=== PATIENT | female | born 1985 | race Caucasian/White ===

== ENCOUNTER 2016-12-29 12:25 | Emergency (ER) | payer SELFPAY ==
--- NOTE | 2016-12-29 12:39 | ER Document Report ---
ED Medical Screen (RME) - General Stated Complaint: HEADACHE,COUGH,CONGESTION,FEVER Mode of Arrival: Ambulatory Information source: Patient Notes: 31 y/o F presents to ED c/o cough and congestion. Reports subjective fever, associated mid chest pain and sob with coughing bouts. I have greeted and performed a rapid initial assessment of this patient. A comprehensive ED assessment and evaluation of the patient, analysis of test results and completion of the medical decision making process will be conducted by additional ED providers. TRAVEL OUTSIDE OF THE [place] IN LAST 30 DAYS: No - Related Data Allergies/Adverse Reactions: No Known Allergies Allergy (Verified 12/29/16 12:34) Past Medical History Endocrine Medical History: Reports: Hx Diabetes Mellitus Type 2 Past Surgical History: Reports: Hx Section, Hx Cholecystectomy - Immunizations Hx Diphtheria, Pertussis, Tetanus Vaccination: No Physical Exam - Vital signs Vitals: Temp Pulse Resp BP Pulse Ox 98.2 F 91 18 125/83 97 12/29/16 12:32 12/29/16 12:32 12/29/16 12:32 12/29/16 12:32 12/29/16 12:32 - General General appearance: Alert In distress: None - Respiratory Respiratory status: No respiratory distress Breath sounds: Normal - Cardiovascular Pulses: Normal: Radial Normal capillary refill: Yes Course - Vital Signs Vital signs: Temp Pulse Resp BP Pulse Ox 98.2 F 91 18 125/83 97 12/29/16 12:32 12/29/16 12:32 12/29/16 12:32 12/29/16 12:32 12/29/16 12:32
[2016-12-29 13:21] LABS: APPEARANCE,URINE SLIGHTLY-CLOUDY; BILIRUBIN,URINE NEGATIVE (NEGATIVE); GLUCOSE, URINE >=500 mg/dL (NEGATIVE); KETONES,URINE TRACE mg/dL (NEGATIVE); LEUKOCYTE ESTERASE,URINE NEGATIVE (NEGATIVE); NITRITE,URINE NEGATIVE (NEGATIVE); PROTEIN,URINE NEGATIVE (NEGATIVE); URINE SPECIFIC GRAVITY 1.039; UROBILINOGEN,URINE NEGATIVE mg/dL (<2.0)
[2016-12-29] MEDS ORDERED: ALBUTEROL SULFATE HFA (90 MCG/PUFF) 8 GM MDI (1 MDI/ER DISP) IH ONE (14:32)
--- NOTE | 2016-12-29 14:33 | ER Document Report ---
ED General - General Chief Complaint: Fever Stated Complaint: HEADACHE,COUGH,CONGESTION,FEVER Mode of Arrival: Ambulatory TRAVEL OUTSIDE OF THE [place] IN LAST 30 DAYS: No - HPI Patient complains to provider of: cough congestion fever headache Notes: Patient coming in for evaluation of cough fever congestion headache ongoing for last 2-3 days. Patient states she's tried Tylenol at home for her symptoms. No other [id number] medications. Patient does not smoke does not drink does not use any drugs. States she has had a flu shot this year. Patient denies any recent travel or sick contacts. Patient states she also is having some mild nausea. - Related Data Allergies/Adverse Reactions: No Known Allergies Allergy (Verified 12/29/16 12:34) Past Medical History - General Information source: Patient - Social History Smoking Status: Never Smoker Chew tobacco use (# tins/day): No Frequency of alcohol use: None Drug Abuse: None Family History: Reviewed & Not Pertinent Patient has suicidal ideation: No Patient has homicidal ideation: No Endocrine Medical History: Reports: Hx Diabetes Mellitus Type 2 Renal/ Medical History: Denies: Hx Peritoneal Dialysis Past Surgical History: Reports: Hx Section, Hx Cholecystectomy - Immunizations Hx Diphtheria, Pertussis, Tetanus Vaccination: No Review of Systems - Review of Systems Constitutional: Fever, Other - Feeling unwell cough congestion EENT: No symptoms reported Cardiovascular: No symptoms reported Respiratory: No symptoms reported Gastrointestinal: Nausea Genitourinary: No symptoms reported Female Genitourinary: No symptoms reported Musculoskeletal: No symptoms reported Skin: No symptoms reported Hematologic/Lymphatic: No symptoms reported Neurological/Psychological: No symptoms reported -: Yes All other systems reviewed and negative Physical Exam - Vital signs Vitals: Temp Pulse Resp BP Pulse Ox 98.2 F 91 18 125/83 97 12/29/16 12:32 12/29/16 12:32 12/29/16 12:32 12/29/16 12:32 12/29/16 12:32 Interpretation: Normal - General General appearance: Appears well, Alert - HEENT Head: Normocephalic, Atraumatic Eyes: Normal Pupils: PERRL - Respiratory Respiratory status: No respiratory distress Chest status: Nontender Breath sounds: Wheezing - Fine wheezing at bases Chest palpation: Normal - Cardiovascular Rhythm: Regular Heart sounds: Normal auscultation Murmur: No - Abdominal Inspection: Normal Distension: No distension Bowel sounds: Normal Tenderness: Nontender Organomegaly: No organomegaly - Back Back: Normal, Nontender - Extremities General upper extremity: Normal inspection, Nontender, Normal color, Normal ROM , Normal temperature General lower extremity: Normal inspection, Nontender, Normal color, Normal ROM , Normal temperature, Normal weight bearing. No: Cherie's sign - Neurological Neuro grossly intact: Yes Cognition: Normal Orientation: AAOx4 Brenda Coma Scale Eye Opening: Spontaneous Brenda Coma Scale Verbal: Oriented [place] Coma Scale Motor: Obeys Commands Brenda Coma Scale Total: 15 Speech: Normal Motor strength normal: LUE, RUE, LLE, RLE Sensory: Normal - Psychological Associated symptoms: Normal affect, Normal mood - Skin Skin Temperature: Warm Skin Moisture: Dry Skin Color: Normal Course - Re-evaluation Re-evalutation: 12/29/16 19:36 Patient more likely has viral bronchitis or viral syndrome. Will treat wheezing with a bronchodilator will give steroids were given nausea medication patient was encouraged to use Tylenol Motrin for other aches and pains will discharge home. - Vital Signs Vital signs: Temp Pulse Resp BP Pulse Ox 98.5 F 91 15 112/64 97 12/29/16 15:08 12/29/16 15:08 12/29/16 15:08 12/29/16 15:08 12/29/16 15:08 - Laboratory Laboratory results interpreted by me: 12/29/16 12:45 Urine Glucose (UA) >=500 H Urine Ketones TRACE H Discharge - Discharge Clinical Impression: Viral bronchitis Condition: Good Disposition: HOME, SELF-CARE Instructions: Fever ([facility]), Viral Syndrome ([facility]), Bronchitis ([facility]) Additional Instructions: Please use the inhaler that we gave you here in ER 2 puffs every 4 hours for shortness of breath. Return to the ER symptoms worsen. Prescriptions: Prednisone [Deltasone 20 mg Tablet] 3 tab PO DAILY 5 Days Promethazine HCl [Phenergan 25 mg Tablet] 1 tab PO Q6H PRN #30 tablet PRN Reason: Forms: Return to Work
[2016-12-29 15:09] VITALS: BP 112/64
--- NOTE | 2016-12-29 22:12 | EKG REPORT ---
SEVERITY:- ABNORMAL ECG - SINUS RHYTHM PROBABLE LEFT VENTRICULAR HYPERTROPHY : Confirmed by: Carolyn Scott 29-Dec-2016 22:12:34
== END 2016-12-29 15:05 | disposition home or self-care (01) ==
LOC: ER 12:25
DX: J40 Bronchitis, not specified as acute or chronic (principal); B97.89 Other viral agents as the cause of diseases classified elsewhere; R05 Cough; R50.9 Fever, unspecified; R51 Headache; R11.0 Nausea; E11.9 Type 2 diabetes mellitus without complications; R06.2 Wheezing
CPT/HCPCS: 93005; 99284; 81025; 81001; 87804; 71020; 93010; J3490

== ENCOUNTER 2017-05-30 16:40 | Emergency (ER) | payer MEDICAID ==
[2017-05-30] MEDS ORDERED: LIDOCAINE 1% INJ-PF (10 MG/ML) 30 ML SDV INJ ONE (16:56)
--- NOTE | 2017-05-30 17:06 | ER Document Report ---
HPI - HPI Patient complains to provider of: finger lac Onset: Just prior to arrival Onset/Duration: Sudden Quality of pain: Achy Pain Level: 2 Context: Patient states that she was cutting chicken, the knife slipped and she cut dorsal aspect of her left index finger. Patient's tetanus is currently up-to- date. Associated Symptoms: Other - finger lac Exacerbated by: Movement Relieved by: Denies Similar symptoms previously: No Recently seen / treated by doctor: No - ROS ROS below otherwise negative: Yes Systems Reviewed and Negative: Yes All other systems reviewed and negative - NEURO Neurology: DENIES: Weakness - CARDIOVASCULAR Cardiovascular: DENIES: Chest pain - GASTROINTESTINAL Gastrointestinal: DENIES: Nausea - REPRODUCTIVE LMP: jan 16 Reproductive: DENIES: : - DERM Skin Color: Normal Skin Problems: Laceration Past Medical History - General Information source: Patient - Social History Smoking Status: Never Smoker Frequency of alcohol use: None Drug Abuse: None Lives with: Family Family History: Reviewed & Not Pertinent Patient has suicidal ideation: No Patient has homicidal ideation: No Endocrine Medical History: Reports: Hx Diabetes Mellitus Type 2 Renal/ Medical History: Denies: Hx Peritoneal Dialysis Past Surgical History: Reports: Hx Section, Hx Cholecystectomy - Immunizations Hx Diphtheria, Pertussis, Tetanus Vaccination: Yes Vertical Provider Document - CONSTITUTIONAL Agree With Documented VS: Yes Exam Limitations: No Limitations General Appearance: WD/WN, No Apparent Distress - INFECTION CONTROL TRAVEL OUTSIDE OF THE [place] IN LAST 30 DAYS: No - HEENT HEENT: Atraumatic, Normocephalic - NECK Neck: Normal Inspection - RESPIRATORY Respiratory: No Respiratory Distress O2 Sat by Pulse Oximetry: 98 - CARDIOVASCULAR Pulses: Normal: Radial - MUSCULOSKELETAL/EXTREMETIES Musculoskeletal/Extremeties: MAEW Notes: Tenderness to laceration over dorsal aspect of right second finger over proximal phalanx. No tendon deficit - NEURO Level of Consciousness: Awake, Alert, Appropriate Motor/Sensory: No Motor Deficit - DERM Integumentary: Laceration - 1.5 cm lac dorsal aspect left 2nd finger Course - Vital Signs Vital signs: Temp Pulse Resp BP Pulse Ox 98.5 F 88 16 133/78 H 98 05/30/17 16:43 05/30/17 16:43 05/30/17 16:43 05/30/17 16:43 05/30/17 16:43 Procedures - Laceration/Wound Repair Left 2nd digit Wound length (cm): 1.5 Wound's Depth, Shape: Linear Anesthetic type: 1% Lidocaine Wound explored: Clean, No foreign body removed Wound Repaired With: Sutures Suture Size/Type: 5:0, Nylon Number of Sutures: 3 Layer Closure?: No Post-procedure wound care: Sterile dressing applied Post-procedure NV exam normal: Yes Complications: No Hands back picture: 1 - 1.5 cm lac Discharge - Discharge Clinical Impression: Finger laceration Qualifiers: Encounter type: initial encounter Finger: index finger Damage to nail status: without damage Foreign body presence: without foreign body Laterality: left Qualified Code(s): S61.211A - Laceration without foreign body of left index finger without damage to nail, initial encounter Condition: Stable Disposition: HOME, SELF-CARE Instructions: Laceration Care ([facility]), Prophylactic Antibiotic ([facility]) Additional Instructions: Return immediately for any new or worsening symptoms Followup with your primary care provider, call tomorrow to make a followup appointment Suture removal in 12 days Prescriptions: Cephalexin Monohydrate [Keflex 500 mg Capsule] 500 mg PO BID 5 Days Forms: Return to Work Referrals: [facility] [Provider Group] - Follow up as needed
[2017-05-30] MEDS ORDERED: CEPHALEXIN 500 MG CAPSULE PO ONE (17:08)
[2017-05-30 18:26] VITALS: BP 112/63
== END 2017-05-30 18:24 | disposition home or self-care (01) ==
LOC: ER 16:40
PROC: 0HQGXZZ Repair Left Hand Skin, External Approach (ICD-10-PCS; principal; 2017-05-30)
DX: S61.211A Laceration without foreign body of left index finger without damage to nail, initial encounter (principal); W26.0XXA Contact with knife, initial encounter; Y93.G9 Activity, other involving cooking and grilling; E11.9 Type 2 diabetes mellitus without complications
CPT/HCPCS: 12001; 99282; J3490

== ENCOUNTER 2017-06-25 14:49 | Outpatient (CLI) | payer MEDICAID ==
[2017-06-25 15:49] LABS: APPEARANCE,URINE SLIGHTLY-CLOUDY; BILIRUBIN,URINE NEGATIVE (NEGATIVE); GLUCOSE, URINE NEGATIVE (NEGATIVE); KETONES,URINE NEGATIVE (NEGATIVE); LEUKOCYTE ESTERASE,URINE NEGATIVE (NEGATIVE); NITRITE,URINE NEGATIVE (NEGATIVE); PROTEIN,URINE NEGATIVE (NEGATIVE); URINE SPECIFIC GRAVITY 1.021; UROBILINOGEN,URINE NEGATIVE mg/dL (<2.0)
[2017-06-25 15:58] LABS: URINE BARBITURATES SCREEN NEGATIVE; URINE METHADONE SCREEN NEGATIVE; URINE OPIATES LOW NEGATIVE; URINE PHENCYCLIDINE SCREEN NEGATIVE
[2017-06-25] MEDS ORDERED: ONDANSETRON 4 MG TAB.RAPDIS ONE (16:03)
[2017-06-25] MEDS ORDERED: ONDANSETRON 4 MG TAB.RAPDIS PO ONE (16:29)
== END 2017-06-25 17:30 | disposition home or self-care (01) ==
LOC: LC 14:49
PROVIDERS: ATTEND Specialist
PROC: 4A1HXCZ Monitoring of Products of Conception, Cardiac Rate, External Approach (ICD-10-PCS; principal; 2017-06-25)
DX: O99.282 Endocrine, nutritional and metabolic diseases complicating pregnancy, second trimester (principal); E86.0 Dehydration; Z3A.24 24 weeks gestation of pregnancy
CPT/HCPCS: 59899; 82962; 81001; 80307; S0119

== ENCOUNTER 2017-07-23 16:37 | Outpatient (CLI) | payer MEDICAID ==
[2017-07-23 17:07] LABS: APPEARANCE,URINE SLIGHTLY-CLOUDY; BILIRUBIN,URINE NEGATIVE (NEGATIVE); GLUCOSE, URINE >=500 mg/dL (NEGATIVE); KETONES,URINE NEGATIVE (NEGATIVE); LEUKOCYTE ESTERASE,URINE NEGATIVE (NEGATIVE); NITRITE,URINE NEGATIVE (NEGATIVE); PROTEIN,URINE NEGATIVE (NEGATIVE); URINE SPECIFIC GRAVITY 1.033; UROBILINOGEN,URINE NEGATIVE mg/dL (<2.0)
[2017-07-23] MEDS ORDERED: RINGERS SOLUTION,LACTATED 1,000 ML IV PRN (17:15)
[2017-07-23] MEDS ORDERED: HYDROXYZINE PAMOATE 50 MG CAPSULE PO ONE (17:15)
[2017-07-23 17:22] LABS: URINE BARBITURATES SCREEN NEGATIVE; URINE METHADONE SCREEN NEGATIVE; URINE OPIATES LOW NEGATIVE; URINE PHENCYCLIDINE SCREEN NEGATIVE
[2017-07-23] MEDS ORDERED: HYDROXYZINE PAMOATE 50 MG CAPSULE ONE (18:35)
--- NOTE | 2017-07-23 20:06 | RADIOLOGY REPORT (SQ) ---
EXAM DESCRIPTION: U/S OB LIMITED COMPLETED DATE/TIME: 07/23/2017 7:58 pm REASON FOR STUDY: CL for cramping COMPARISON: None. TECHNIQUE: Limited transabdominal grayscale ultrasound for evaluation of specific requested obstetri lavon parameters. LIMITATIONS: None. FINDINGS: CERVICAL LENGTH: 3.1 cm Closed. FHR: 158 beats per minute. PRESENTATION: Cephalic. OTHER: No other significant findings. IMPRESSION: LIMITED OBSTETRICAL ULTRASOUND WITH MEASURED PARAMETERS DELINEATED ABOVE. Trimester of : Third trimester - 28 weeks to delivery. TECHNICAL DOCUMENTATION: JOB ID: [id number] [employer]- All Rights Reserved
== END 2017-07-23 18:55 | disposition home or self-care (01) ==
LOC: LC 16:37
PROVIDERS: ATTEND Obstetrics & Gynecology
PROC: 4A1HXCZ Monitoring of Products of Conception, Cardiac Rate, External Approach (ICD-10-PCS; principal; 2017-07-23)
DX: O26.892 Other specified pregnancy related conditions, second trimester (principal); R10.9 Unspecified abdominal pain; O99.282 Endocrine, nutritional and metabolic diseases complicating pregnancy, second trimester; E86.0 Dehydration; Z3A.27 27 weeks gestation of pregnancy
CPT/HCPCS: 59899; 81001; 80307; 76815; J3490

== ENCOUNTER 2017-08-06 11:01 | Emergency (ER) | payer MEDICAID ==
[2017-08-06] MEDS ORDERED: METOCLOPRAMIDE HCL 10 MG TABLET PO ONE (11:21)
[2017-08-06] MEDS ORDERED: DIPHENHYDRAMINE HCL 25 MG CAPSULE PO ONE (11:21)
--- NOTE | 2017-08-06 11:22 | ER Document Report ---
ED Medical Screen (RME) - General Chief Complaint: Headache Stated Complaint: HEADACHE Time Seen by Provider: 08/06/17 11:17 Notes: Patient is 30 weeks reports waking up Monday morning about 4:30 AM with a frontal headache. She reports she can usually take Tylenol for headache and gets better but this will not. She reports feeling lightheaded and dizzy. She states her blood sugars have remained above 200, she takes NovoLog and Humulin. I have greeted and performed a rapid initial assessment of this patient. A comprehensive ED assessment and evaluation of the patient, analysis of test results and completion of the medical decision making process will be conducted by additional ED providers. TRAVEL OUTSIDE OF THE [place] IN LAST 30 DAYS: No - Related Data Allergies/Adverse Reactions: No Known Allergies Allergy (Verified 08/06/17 11:08) Past Medical History - Social History Chew tobacco use (# tins/day): No Frequency of alcohol use: None Drug Abuse: None Endocrine Medical History: Reports: Hx Diabetes Mellitus Type 2 Renal/ Medical History: Denies: Hx Peritoneal Dialysis Past Surgical History: Reports: Hx Section, Hx Cholecystectomy - Immunizations Hx Diphtheria, Pertussis, Tetanus Vaccination: Yes
[2017-08-06 11:39] LABS: ABSOLUTE EOSINOPHILS # (AUTO) 0.1 10^3/uL (0.0-0.6); ABSOLUTE LYMPHOCYTES (AUTO) 2.4 10^3/uL (0.5-4.7); ABSOLUTE NEUT (AUTO) 10.6 10^3/uL (1.7-8.2); BASOPHILS % (AUTO) 0.3 % (0-2); EOSINOPHILS % (AUTO) 0.8 % (0-6); HEMATOCRIT 35.4 % (36.0-47.0); HEMOGLOBIN 11.9 g/dL (12.0-15.5); HGB HCT DIFFERENCE 0.3; LYMPHOCYTES % (AUTO) 17.1 % (13-45); MEAN CORPUSCULAR HEMOGLOBIN 27.1 pg (27.0-33.4); MEAN CORPUSCULAR HGB CONC 33.8 g/dL (32.0-36.0); MEAN CORPUSCULAR VOLUME 80 fl (80-97); MONOCYTES % (AUTO) 7.3 % (3-13); RED BLOOD COUNT 4.41 10^6/uL (3.72-5.28); RED CELL DISTRIBUTION WIDTH 15.1 % (11.5-14.0); SEGMENTED NEUTROPHILS % (AUTO) 74.5 % (42-78); WHITE BLOOD COUNT 14.3 10^3/uL (4.0-10.5)
[2017-08-06 11:45] LABS: APPEARANCE,URINE SLIGHTLY-CLOUDY; BILIRUBIN,URINE NEGATIVE (NEGATIVE); GLUCOSE, URINE NEGATIVE (NEGATIVE); KETONES,URINE NEGATIVE (NEGATIVE); LEUKOCYTE ESTERASE,URINE NEGATIVE (NEGATIVE); NITRITE,URINE NEGATIVE (NEGATIVE); PROTEIN,URINE NEGATIVE (NEGATIVE); UROBILINOGEN,URINE NEGATIVE mg/dL (<2.0)
[2017-08-06 12:00] LABS: ALANINE AMINOTRANSFERASE 18 U/L (9-52); ALBUMIN 3.5 g/dL (3.5-5.0); ALKALINE PHOSPHATASE 103 U/L (38-126); ANION GAP 11 (5-19); ASPARTATE AMINO TRANSFERASE 15 U/L (14-36); BILIRUBIN,DIRECT 0.3 mg/dL (0.0-0.4); BILIRUBIN,TOTAL 0.3 mg/dL (0.2-1.3); BLOOD UREA NITROGEN 5 mg/dL (7-20); CALCIUM 9.4 mg/dL (8.4-10.2); CARBON DIOXIDE 24 mmol/L (22-30); CHLORIDE 101 mmol/L (98-107); CREATININE RESULT 0.38 mg/dL (0.52-1.25); GLUCOSE 131 mg/dL (75-110); POTASSIUM 3.8 mmol/L (3.6-5.0); SODIUM 136.4 mmol/L (137-145); TOTAL PROTEIN 6.7 g/dL (6.3-8.2)
[2017-08-06] MEDS: NORMAL SALINE 1000 ML 1,000 ML IV PRN ×2 (12:12→13:36)
[2017-08-06 12:27] LABS: MAGNESIUM 1.7 mg/dL (1.6-2.3); URIC ACID 1.4 mg/dL (2.5-6.2)
[2017-08-06] MEDS ORDERED: MORPHINE SULFATE 10 MG/ML INJ IV ONE (13:02)
[2017-08-06] MEDS ORDERED: NORMAL SALINE 1000 ML 1,000 ML IV PRN (13:02)
[2017-08-06] MEDS ORDERED: ONDANSETRON HCL INJ/PF 4 MG/2 ML SDV IV ONE (13:02)
--- NOTE | 2017-08-06 13:03 | ER Document Report ---
ED Headache - General Chief Complaint: Headache Stated Complaint: HEADACHE Time Seen by Provider: 08/06/17 11:17 Mode of Arrival: Ambulatory Information source: Patient TRAVEL OUTSIDE OF THE [place] IN LAST 30 DAYS: No - HPI Patient complains to provider of: Headache Onset: Yesterday Onset was: Gradual Timing: Worse Quality of pain: Achy, Pressure Severity: Moderate Pain Level: 4 Associated symptoms: Nausea/vomiting, Photophobia Notes: Patient is a 31-year-old female who is approximately 30 weeks presenting with a headache that started around 430 Monday morning, pain is behind both eyes and in the frontal region and associated with nausea as well as photophobia, she denies any head injury or trauma, no fever or chills, no vomiting, she denies a history of previous frequent headaches but does report that typically she can take some Tylenol and her headache will go away, she did take Tylenol and did not have resolution of symptoms this time - Related Data Allergies/Adverse Reactions: No Known Allergies Allergy (Verified 08/06/17 11:08) Past Medical History - General Information source: Patient - Social History Smoking Status: Never Smoker Chew tobacco use (# tins/day): No Frequency of alcohol use: None Drug Abuse: None Family History: Reviewed & Not Pertinent Endocrine Medical History: Reports: Hx Diabetes Mellitus Type 2 Renal/ Medical History: Denies: Hx Peritoneal Dialysis Past Surgical History: Reports: Hx Section, Hx Cholecystectomy - Immunizations Hx Diphtheria, Pertussis, Tetanus Vaccination: Yes Review of Systems - Review of Systems Constitutional: No symptoms reported EENT: No symptoms reported Cardiovascular: No symptoms reported Respiratory: No symptoms reported Gastrointestinal: Nausea Genitourinary: No symptoms reported Female Genitourinary: No symptoms reported Musculoskeletal: No symptoms reported Skin: No symptoms reported Hematologic/Lymphatic: No symptoms reported Neurological/Psychological: Headaches -: Yes All other systems reviewed and negative Physical Exam - Vital signs Vitals: Temp Pulse Resp BP Pulse Ox 98.6 F 86 16 130/73 H 98 08/06/17 11:08 08/06/17 11:08 08/06/17 11:08 08/06/17 11:08 08/06/17 11:08 Interpretation: Normal - General General appearance: Appears well, Alert - HEENT Head: Normocephalic, Atraumatic Eyes: Normal Pupils: PERRL - Respiratory Respiratory status: No respiratory distress Chest status: Nontender Breath sounds: Normal Chest palpation: Normal - Cardiovascular Rhythm: Regular Heart sounds: Normal auscultation Murmur: No - Abdominal Inspection: Normal, Gravid female Distension: No distension Bowel sounds: Normal Tenderness: Nontender Organomegaly: No organomegaly - Back Back: Normal, Nontender - Extremities General upper extremity: Normal inspection, Nontender, Normal color, Normal ROM , Normal temperature General lower extremity: Normal inspection, Nontender, Normal color, Normal ROM , Normal temperature, Normal weight bearing. No: Cherie's sign - Neurological Neuro grossly intact: Yes Cognition: Normal Orientation: AAOx4 [place] Coma Scale Eye Opening: Spontaneous Brenda Coma Scale Verbal: Oriented Brenda Coma Scale Motor: Obeys Commands [place] Coma Scale Total: 15 Speech: Normal Motor strength normal: LUE, RUE, LLE, RLE Sensory: Normal - Psychological Associated symptoms: Normal affect, Normal mood - Skin Skin Temperature: Warm Skin Moisture: Dry Skin Color: Normal Course - Re-evaluation Re-evalutation: 08/06/17 15:35 Patient sitting up on stretcher, reports feeling much better, headache is resolved and she is ready to go home, patient was advised to rest, drink plenty fluids, follow-up with her doctor or return if symptoms worsen, patient acknowledges understanding and agreement with this plan - Vital Signs Vital signs: Temp Pulse Resp BP Pulse Ox 97.8 F 73 16 109/57 L 99 08/06/17 15:20 08/06/17 15:20 08/06/17 11:08 08/06/17 15:20 08/06/17 15:20 - Laboratory Result Diagrams: 08/06/17 11:26 08/06/17 11:26 Laboratory results interpreted by me: 08/06/17 08/06/17 08/06/17 11:26 11:26 11:26 WBC 14.3 H Hgb 11.9 L Hct 35.4 L RDW 15.1 H Absolute Neutrophils 10.6 H Sodium 136.4 L BUN 5 L Creatinine 0.38 L Glucose 131 H Uric Acid 1.4 L - Diagnostic Test Radiology reviewed: Image reviewed, Reports reviewed Discharge - Discharge Clinical Impression: Headache Qualifiers: Headache type: unspecified Headache chronicity pattern: acute headache Intractability: not intractable Qualified Code(s): R51 - Headache Condition: Stable Disposition: HOME, SELF-CARE Instructions: Headache ([facility]) Additional Instructions: Follow up with your primary care provider in one to 2 days. Return to the emergency room immediately if symptoms worsen or any additional concerns. Forms: Return to Work Referrals: GREGORY SIMON MD [Primary Care Provider] - Follow up as needed
--- NOTE | 2017-08-06 14:04 | RADIOLOGY REPORT (SQ) ---
EXAM DESCRIPTION: CT HEAD WITHOUT COMPLETED DATE/TIME: 08/06/2017 1:47 pm REASON FOR STUDY: headache COMPARISON: None. TECHNIQUE: Axial images acquired through the brain without intravenous contrast. Images reviewed wi th bone, brain and subdural windows. Images stored on PACS. All CT scanners at this facility use dose modulation, iterative reconstruction, and/or weight based d osing when appropriate to reduce radiation dose to as low as reasonably achievable (ALARA). [facility]: Dose Right [facility]: CareDose [facility]: Dose Right [facility]: Teradose 4D [facility]: KVK TEAM RADIATION DOSE: Up-to-date CT equipment and radiation dose reduction techniques were employed. CTDIv ol: 64.6 mGy. DLP: 1163 mGy-cm. mGy. LIMITATIONS: None. FINDINGS: VENTRICLES: Normal size and contour. CEREBRUM: No masses. No hemorrhage. No midline shift. No evidence for acute infarction. Normal gra y/white matter differentiation. No areas of low density in the white matter. CEREBELLUM: No masses. No hemorrhage. No alteration of density. No evidence for acute infarction. EXTRAAXIAL SPACES: No fluid collections. No masses. ORBITS AND GLOBE: No intra- or extraconal masses. Normal contour of globe without masses. CALVARIUM: No fracture. PARANASAL SINUSES: No fluid or mucosal thickening. SOFT TISSUES: No mass or hematoma. OTHER: No other significant finding. IMPRESSION: NORMAL BRAIN CT WITHOUT CONTRAST. COMMENT: Quality ID # [id number]: Final reports with documentation of one or more dose reduction techniques (e.g., Automated exposure control, adjustment of the mA and/or kV according to patient size, use of iterative reconstruction technique) TECHNICAL DOCUMENTATION: JOB ID: [id number]- All Rights Reserved
[2017-08-06] MEDS ORDERED: PROCHLORPERAZINE EDISYLATE INJ 10 MG/2 ML VIAL IV ONE (14:20)
[2017-08-06 15:23] VITALS: BP 109/57
== END 2017-08-06 15:37 | disposition home or self-care (01) ==
LOC: ER 11:01
DX: R51 Headache (principal); R11.2 Nausea with vomiting, unspecified; H53.149 Visual discomfort, unspecified; E11.9 Type 2 diabetes mellitus without complications; Z90.49 Acquired absence of other specified parts of digestive tract
CPT/HCPCS: 99284; 96361; 96374; 96375; 36415; 83615; 83735; 84550; 85025; 80053; 81001; 70450; J3490 ×2; J2270; J0780; J2405; J7030

== ENCOUNTER 2017-10-02 09:06 | Inpatient (IN) | payer MEDICAID ==
[2017-10-02 09:46] LABS: APPEARANCE,URINE CLEAR; BILIRUBIN,URINE NEGATIVE (NEGATIVE); GLUCOSE, URINE NEGATIVE (NEGATIVE); KETONES,URINE NEGATIVE (NEGATIVE); LEUKOCYTE ESTERASE,URINE NEGATIVE (NEGATIVE); NITRITE,URINE NEGATIVE (NEGATIVE); PROTEIN,URINE NEGATIVE (NEGATIVE); URINE SPECIFIC GRAVITY 1.009; UROBILINOGEN,URINE NEGATIVE mg/dL (<2.0)
[2017-10-02] MEDS ORDERED: RINGERS SOLUTION,LACTATED 1,000 ML IV PRN (09:50)
[2017-10-02] MEDS ORDERED: CITRIC ACID/SODIUM CITRATE ORAL SOLN 15 ML UDCUP PO ONE (10:00)
[2017-10-02] MEDS ORDERED: CEFAZOLIN 2 GM/D5W RTU 2 GM/50 ML RTUPB IV ONE ×2 (10:00→14:25)
[2017-10-02 10:02] LABS: URINE BARBITURATES SCREEN NEGATIVE; URINE METHADONE SCREEN NEGATIVE; URINE OPIATES LOW NEGATIVE; URINE PHENCYCLIDINE SCREEN NEGATIVE
[2017-10-02 10:07] LABS: URINE CREATININE 66.7 mg/dL (16-327); URINE PROTEIN 9.9 mg/dL (<12)
[2017-10-02 10:54] LABS: ABSOLUTE EOSINOPHILS # (AUTO) 0.1 10^3/uL (0.0-0.6); ABSOLUTE LYMPHOCYTES (AUTO) 2.2 10^3/uL (0.5-4.7); ABSOLUTE MONOCYTES (AUTO) 0.7 10^3/uL (0.1-1.4); ABSOLUTE NEUT (AUTO) 4.8 10^3/uL (1.7-8.2); BASOPHILS % (AUTO) 0.5 % (0-2); EOSINOPHILS % (AUTO) 0.7 % (0-6); HEMATOCRIT 32.2 % (36.0-47.0); HEMOGLOBIN 10.9 g/dL (12.0-15.5); HGB HCT DIFFERENCE 0.5; LYMPHOCYTES % (AUTO) 28.3 % (13-45); MEAN CORPUSCULAR HEMOGLOBIN 25.5 pg (27.0-33.4); MEAN CORPUSCULAR HGB CONC 33.9 g/dL (32.0-36.0); MEAN CORPUSCULAR VOLUME 75 fl (80-97); MONOCYTES % (AUTO) 9.1 % (3-13); RED BLOOD COUNT 4.27 10^6/uL (3.72-5.28); RED CELL DISTRIBUTION WIDTH 14.3 % (11.5-14.0); SEGMENTED NEUTROPHILS % (AUTO) 61.4 % (42-78); WHITE BLOOD COUNT 7.8 10^3/uL (4.0-10.5)
[2017-10-02 11:18] LABS: ALANINE AMINOTRANSFERASE 19 U/L (9-52); ALBUMIN 2.8 g/dL (3.5-5.0); ALKALINE PHOSPHATASE 143 U/L (38-126); ANION GAP 9 (5-19); ASPARTATE AMINO TRANSFERASE 13 U/L (14-36); BILIRUBIN,DIRECT 0.2 mg/dL (0.0-0.4); BILIRUBIN,TOTAL 0.3 mg/dL (0.2-1.3); BLOOD UREA NITROGEN 5 mg/dL (7-20); CALCIUM 8.7 mg/dL (8.4-10.2); CARBON DIOXIDE 21 mmol/L (22-30); CHLORIDE 106 mmol/L (98-107); CREATININE RESULT 0.39 mg/dL (0.52-1.25); GLUCOSE 93 mg/dL (75-110); LDH 345 U/L (313-618); POTASSIUM 3.9 mmol/L (3.6-5.0); SODIUM 136.3 mmol/L (137-145); TOTAL PROTEIN 5.6 g/dL (6.3-8.2); URIC ACID 2.2 mg/dL (2.5-6.2)
[2017-10-02] MEDS ORDERED: CITRIC ACID/SODIUM CITRATE ORAL SOLN 15 ML UDCUP ONE (14:25)
[2017-10-02] MEDS ORDERED: MIDAZOLAM 2 MG/2 ML INJ ONE (15:32)
[2017-10-02] MEDS ORDERED: OXYTOCIN 10 UNIT/ML VIAL ONE (15:32)
[2017-10-02] MEDS ORDERED: EPHEDRINE SULFATE INJ 50 MG/1 ML AMPULE ONE (15:32)
[2017-10-02] MEDS ORDERED: FENTANYL CITRATE INJ/PF 100 MCG/2 ML AMPUL ONE (15:32)
[2017-10-02] MEDS ORDERED: OXYTOCIN/NORMAL SALINE 20 UNIT/1,000 ML RTUINJ ONE (15:33)
[2017-10-02] MEDS ORDERED: ONDANSETRON HCL INJ/PF 4 MG/2 ML SDV ONE (15:33)
[2017-10-02] MEDS ORDERED: MORPHINE SULFATE 10 MG/ML INJ IV PRN (16:22)
[2017-10-02] MEDS ORDERED: OXYCODONE-ACETAMINOPHEN 5-325 MG TABLET PO PRN ×3 (16:22→16:59)
[2017-10-02] MEDS ORDERED: DIPHENHYDRAMINE HCL 50 MG/ML VIAL IV PRN (16:22)
[2017-10-02] MEDS ORDERED: PROMETHAZINE HCL INJ 25 MG/1 ML VIAL IV PRN ×3 (16:22→16:59)
[2017-10-02] MEDS ORDERED: MEPERIDINE HCL/PF INJ 25 MG/1 ML DISP.SYRIN IV PRN (16:22)
[2017-10-02] MEDS ORDERED: FENTANYL CITRATE INJ/PF 100 MCG/2 ML AMPUL IV PRN ×3 (16:22)
--- NOTE | 2017-10-02 16:47 | OPERATIVE REPORT E ---
Operative Report NAME: EREN ROUSE : 1985 AGE: 31Y DATE OF SURGERY: 10/02/2017 ROOM: LR200 PREOPERATIVE DIAGNOSES: 1. A 37-week 6-day intrauterine . 2. Preeclampsia with severe features. 3. History of section x2, for repeat. 3. Patient desiring permanent sterilization. POSTOPERATIVE DIAGNOSES: 1. A 37-week 6-day intrauterine . 2. Preeclampsia with severe features. 3. History of section x2, for repeat. 3. Patient desiring permanent sterilization. SURGEON: Dane Cruz D.O. LAP CHECKER: None. PROCEDURES: 1. Repeat low-transverse section. 2. Bilateral tubal ligation using Filshie clips, 1 on each fallopian tube. ANESTHESIA: Spinal. COMPLICATIONS: None. PATHOLOGY: Placenta. ESTIMATED BLOOD LOSS: 600 mL. FINDINGS: 1. A viable female infant at 15:42 hours on 10/02/2017. Apgars 7 at one, 8 at five; weight pending dictation. 2. Normal-appearing bilateral fallopian tubes and ovaries. PROCEDURE: The patient was taken to the operating room where her spinal anesthesia was administered. Once this was done, she was placed in a dorsal supine position with a leftward tilt upon the operating room table. She was then prepped and draped in the normal sterile fashion. A scalpel was then used to make a Pfannenstiel skin incision. The skin incision was carried down through subcutaneous tissue to the layer of the fascia. The fascia was incised at midline. The fascial incision was then extended bilaterally using the Bovie cautery. The superior fascial edge was grasped with Leonora clamps, elevated, and the rectus muscles dissected off sharply and bluntly. Attention was then turned to the inferior fascial edge, which was grasped with Leonora clamps, elevated and the rectus muscles dissected off sharply and bluntly. The rectus muscles were then in the midline, peritoneum identified and entered bluntly with the surgeon's hands. A bladder blade was inserted. A scalpel was then used to make a low transverse hysterotomy incision. The was found in the cephalic position and delivered through this incision without difficulty and atraumatically. The nose and mouth were suctioned. The cord was clamped and cut. The infant was handed off to the awaiting head sawyer. Cord blood was obtained. The placenta was then manually removed from the uterus. The uterus was exteriorized and cleared of all clots and debris. The hysterotomy incision was then reapproximated using 2 layers of 1-0 Vicryl in a running locking fashion, following closely with a second layer. Excellent hemostasis was noted. The left fallopian tube was then grasped in its midportion, and a Filshie clip placed on it without difficulty. The exact same procedure was then repeated on the right fallopian tube. The uterus was then returned to the abdomen. Again the hysterotomy incision was reinspected and found to have excellent hemostasis. The rectus muscles were then reapproximated using 1-0 Vicryl in interrupted sutures. The fascia was then closed using 1-0 Vicryl in a running, non-locking fashion. The subcutaneous space was made hemostatic using Bovie cautery. The subcutaneous space was then closed using 3-0 plain gut. The skin was then closed with absorbable maria e, covered with an OpSite and then with a pressure dressing. At this point in time,, the procedure was terminated. All sponge, lap, and needle counts were correct x2. The patient tolerated the procedure well. The patient was taken to recovery room in stable condition. DICTATING PHYSICIAN: Dane Cruz DO [id number] PHY#: [id number] ID: [id number] JOB#: [id number] ACCT: [id number] cc:Dane Cruz D.O. >
[2017-10-02] MEDS ORDERED: SIMETHICONE 80 MG TAB.CHEW PO PRN (16:59)
[2017-10-02] MEDS ORDERED: ACETAMINOPHEN 325 MG TABLET PO PRN (16:59)
[2017-10-02] MEDS ORDERED: OXYTOCIN/NORMAL SALINE 20 UNIT/1,000 ML RTUINJ IV PRN (16:59)
[2017-10-02] MEDS ORDERED: DIPH/PERTUSS(ACELL)/TETANUS VAC/PF 0.5 ML SYR (>=10YO) IM PRN (16:59)
[2017-10-02] MEDS ORDERED: MEASLES,MUMPS&RUBELLA VACC/PF 0.5 ML VIAL SUBCUT PRN (16:59)
--- NOTE | 2017-10-02 17:16 | Admission Physical ---
Datetime Report Generated by CPN: 10/02/2017 17:16 CURRENT ADMISSION Chief Complaint: Sent from OB Office for Evaluation and Treatment - Please Specify Indication for Induction: PreEclampsia; Polyhydramnios Indication for Induction: Term, Intrauterine ; No Active Labor; Intact Membranes; Repeat Section Admit Plan: Admit to Unit; Initiate Section Protocol ALLERGIES Medication Allergies: No Medication Allergies: No Known Allergies (08/06/2017) Medication Allergies: No Known Allergies (12/29/2016) Medication Allergies: No Known Allergies (12/02/2011) OBSTETRICAL HISTORY EDC: 10/17/2017 00:00 : 5 Para: 2 Term: 2 : 0 SAB: 2 IAB: 0 Ectopic: 0 Livin Cesareans: 1 VBACs: 0 Multiple Births: 0 Gestational Diabetes: No Rh Sensitization: No Incompetent Cervix: No EDWIN: No Infertility: No ART Treatment: No Uterine Anomaly: No IUGR: No Hx Previous C/S: Yes Macrosomia: No Hx Loss/Stillborn: No PIH: No Hx : No Placenta Previa/Abruption: No Depression/PP Depression: No PTL/PROM: No Post Hemorrhage: No Current Procedures: Ultrasound Obstetrical History Comments: 2004 baby boy 2008- 2011 C/S baby girl current SEE RECORDS Alcohol: No Marijuana : No Cocaine: No Other Illicit Drugs: No Cigarettes: Never Smoker. [id number] MEDICAL HISTORY Diabetes: No Diabetes Type: Type II - NIDDM Blood Transfusion: No Pulmonary Disease (Asthma, TB): No Breast Disease: No Hypertension: No Data Conversion Developer Surgery: No Heart Disease: No Hosp/Surgery: No Autoimmune Disorder: No Anesthetic Complications: No Kidney Disease: No Abnormal Pap Smear: No Neuro/Epilepsy: No Psychiatric Disorders: No Other Medical Diseases: No Hepatitis/Liver Disease: No Significant Family History: No Varicosities/Phlebitis: No Trauma/Violence : No Thyroid Dysfunction: No Medical History Comments: Abnormal pap- 2006 Type 2 diabetic since age 23 INFECTIOUS HISTORY Gonorrhea: No Genital Herpes: No Chlamydia: No Tuberculosis: No Syphilis: No Hepatitis: No HIV/AIDS Exposure: No Rash or Viral Illness: No HPV: Yes PHYSICAL EXAM General: Normal HEENT: Normal Neurologic: Normal Thyroid: Deferred Heart: Normal Lungs: Normal Breast: Deferred Back: Normal Abdomen: Normal Genitourinary Exam: Normal Extremities: Normal DTRs: Normal Pelvic Type: Adequate Vital Signs: Reviewed; Within Normal Limits VAGINAL EXAM Dilatation: 0 Effacement: 0 Station: -3 MEMBRANES Membranes: Intact FETUS A EGA: 37.6 Monitoring: External US FHR- Baseline: 140 Variability: Moderate 6-25bpm Accelerations: 15X15 Decelerations: None FHR Category: Category I Presentation: Vertex Admit Comment: Will Proceed with Repeat C/S and BTL PLANS FOR LABOR AND DELIVERY Labor and Delivery: None Pain Management: Spinal Feeding Preference: Both Benefit of Breast Feed Discussed: Yes Circumcision: N/A INFORMED CONSENT Signature: with User ID: [email or web address]
[2017-10-02] MEDS ORDERED: DEXTROSE 50%-WATER SYRINGE 25 GM/50 ML DOSE IV PRN (17:37)
[2017-10-02] MEDS ORDERED: DEXTROSE 40% GEL 15 GM TUBE X 2 PO PRN (17:37)
[2017-10-02] MEDS ORDERED: DEXTROSE 40% GEL 15 GM TUBE PO PRN (17:37)
[2017-10-02] MEDS ORDERED: DEXTROSE 50%-WATER SYRINGE 12.5 GM/25 ML DOSE IV PRN (17:37)
[2017-10-02] MEDS ORDERED: INSULIN LISPRO 100 UNIT/ML 3 ML VIAL SUBCUT PRN ×2 (17:37→17:45)
[2017-10-02] MEDS ORDERED: GLUCAGON,HUMAN RECOMB 1 MG INJ IM PRN (17:37)
[2017-10-02] MEDS ORDERED: HYDROMORPHONE HCL INJ/PF 2 MG/ML AMPULE IV PRN (17:40)
[2017-10-02] MEDS ORDERED: INSULIN REG, HUMAN 100 UNIT/ML 3 ML VIAL (PYX) SUBCUT SCH (18:00)
[2017-10-02] MEDS ORDERED: INFLUENZA ADLT QUAD (36MOS+) 2017-18 VAC 0.5 ML SYR IM PRN (18:24)
[2017-10-02] MEDS: IBUPROFEN 800 MG TABLET PO SCH ×2 (18:45→23:29)
[2017-10-02] MEDS: DOCUSATE SODIUM 100 MG CAPSULE PO SCH (18:45)
[2017-10-02] MEDS: RINGERS SOLUTION,LACTATED 1,000 ML IV PRN (18:56)
[2017-10-02] MEDS: OXYCODONE-ACETAMINOPHEN 5-325 MG TABLET PO PRN (20:16)
[2017-10-02] MEDS ORDERED: INSULIN LISPRO 100 UNIT/ML 3 ML VIAL SUBCUT ONE (22:45)
[2017-10-03] MEDS: OXYCODONE-ACETAMINOPHEN 5-325 MG TABLET PO PRN ×2 (04:23→20:49)
[2017-10-03] MEDS: RINGERS SOLUTION,LACTATED 1,000 ML IV PRN (04:54)
[2017-10-03] MEDS: IBUPROFEN 800 MG TABLET PO SCH ×3 (05:58→18:03)
[2017-10-03 06:06] LABS: HEMATOCRIT 28.8 % (36.0-47.0); HEMOGLOBIN 9.9 g/dL (12.0-15.5); HGB HCT DIFFERENCE 0.9; MEAN CORPUSCULAR HEMOGLOBIN 26.1 pg (27.0-33.4); MEAN CORPUSCULAR HGB CONC 34.3 g/dL (32.0-36.0); MEAN CORPUSCULAR VOLUME 76 fl (80-97); RED BLOOD COUNT 3.79 10^6/uL (3.72-5.28); RED CELL DISTRIBUTION WIDTH 14.5 % (11.5-14.0); WHITE BLOOD COUNT 10.4 10^3/uL (4.0-10.5)
[2017-10-03] MEDS: INSULIN NPH (ISOPHANE), HUMAN 100 UNIT/ML 3 ML SUBCUT SCH (07:54)
[2017-10-03] MEDS ORDERED: INSULIN REG, HUMAN 100 UNIT/ML 3 ML VIAL (PYX) SUBCUT SCH (08:00)
[2017-10-03] MEDS: PRENATAL VITAMIN W-O CA NO5/FE FUMARATE/FA CAPSULE PO SCH (10:10)
[2017-10-03] MEDS: DOCUSATE SODIUM 100 MG CAPSULE PO SCH ×2 (10:10→18:03)
--- NOTE | 2017-10-03 13:16 | PDOC PROGRESS REPORT ---
Subjective-OB Subjective: Post Delivery Day:1 31 year old G5 now P3 s/p repeat with BTL. Ambulating, voiding, passing gas without difficulty. Denies [place]/visual disturbances or other concerns/ needs at this time Physical Exam (OB) Vital Signs: Temp Pulse Resp BP Pulse Ox 98.6 F 80 17 128/76 H 100 10/03/17 12:31 10/03/17 12:31 10/03/17 12:31 10/03/17 12:31 10/03/17 12:31 Intake & Output 10/02/17 10/03/17 10/04/17 06:59 06:59 06:59 Intake Total 2160 Output Total 2250 Balance -90 Weight 107.5 kg - General General Appearance: Appears well In distress: None - PIH/Pre-Eclampsia DTR's: 2 + Clonus: Negative Headache: Absent Epigastric Pain: No Visual Changes: No - Dressing Removed: Yes Incision: Dressing Closure Type: Surgical Glue - Lochia Lochia Amount: Small 10-25 ml Lochia Color: Rubra/Red - Abdomen Description: Soft Hernia Present: No Fundal Description: Firm, Midline Fundal Height: u/u - u/2 - Respiratory Respiratory Status: No respiratory distress - Extremities Upper extremity: Normal inspection Lower extremities: Normal inspection - Neurological Cognition: Normal Orientation: AAOx4 - Psychological Associated symptoms: Normal affect, Normal mood Objective-Diagnostic Laboratory: 10/03/17 05:55 10/02/17 10:42 10/03/17 05:55 WBC 10.4 RBC 3.79 Hgb 9.9 L Hct 28.8 L MCV 76 L MCH 26.1 L MCHC 34.3 RDW 14.5 H Plt Count 183 Assessment and Plan(PN) - Assessment and Plan (1) Anemia affecting in third trimester Is this a current diagnosis for this admission?: Yes Plan: feso4 BID and inc. dietary iron (2) Pre-eclampsia affecting childbirth Is this a current diagnosis for this admission?: Yes Plan: continue to monitor for worsening s/s of pre-e. (3) Polyhydramnios affecting Is this a current diagnosis for this admission?: Yes Plan: delivered (4) Gestational diabetes mellitus (GDM) affecting fifth Is this a current diagnosis for this admission?: Yes Plan: routine glucose screening pp - Time Spent with Patient Time with patient: Less than 15 minutes Smoking Education Provided: Over 3 minutes Medications reviewed and adjusted accordingly: Yes - Disposition Anticipated Discharge: Home Within: within 24 hours
[2017-10-03] MEDS ORDERED: INSULIN NPH (ISOPHANE), HUMAN 100 UNIT/ML 3 ML SUBCUT SCH (18:00)
[2017-10-03] MEDS: FERROUS SULFATE 325 MG TABLET PO SCH (18:03)
[2017-10-04] MEDS: IBUPROFEN 800 MG TABLET PO SCH ×3 (00:50→12:54)
[2017-10-04] MEDS: INSULIN NPH (ISOPHANE), HUMAN 100 UNIT/ML 3 ML SUBCUT SCH (07:48)
[2017-10-04] MEDS: OXYCODONE-ACETAMINOPHEN 5-325 MG TABLET PO PRN (07:49)
--- NOTE | 2017-10-04 09:07 | PDOC PROGRESS REPORT ---
Subjective-OB Subjective: Post Delivery Day: 31 year old. Denies any needs at this time Doing well, no c/o, baby in NICU, breast and bottle feeding, pasing gas, voiding , scant bleeding, eating well, baby improving Physical Exam (OB) Vital Signs: Temp Pulse Resp BP Pulse Ox 98.6 F 71 18 124/71 100 10/04/17 03:58 10/04/17 03:58 10/04/17 03:58 10/04/17 03:58 10/04/17 03:58 Intake & Output 10/03/17 10/04/17 10/05/17 06:59 06:59 06:59 Intake Total 2160 700 Output Total 2250 Balance -90 700 Weight 107.5 kg - PIH/Pre-Eclampsia DTR's: 2 + Clonus: Negative Headache: Absent Epigastric Pain: No Visual Changes: No - Dressing Removed: Yes - Opsite - small drainage outlined Incision: Dressing Closure Type: Surgical Glue - Lochia Lochia Amount: Scant < 10 ml Lochia Color: Rubra/Red - Abdomen Description: Tender, Soft Hernia Present: No Fundal Description: Firm, Midline Fundal Height: u/u - u/2 Objective-Diagnostic Laboratory: 10/03/17 05:55 10/02/17 10:42 Assessment and Plan(PN) - Assessment and Plan (1) Tubal ligation status Is this a current diagnosis for this admission?: Yes (2) Status post repeat low transverse section Is this a current diagnosis for this admission?: Yes (3) Anemia affecting in third trimester Is this a current diagnosis for this admission?: Yes (4) Polyhydramnios affecting Is this a current diagnosis for this admission?: Yes (5) Gestational diabetes mellitus (GDM) affecting fifth Is this a current diagnosis for this admission?: Yes - Time Spent with Patient Time with patient: Less than 15 minutes Smoking Education Provided: Over 3 minutes Medications reviewed and adjusted accordingly: Yes - Disposition Anticipated Discharge: Home Within: Other - home today
--- NOTE | 2017-10-04 09:13 | PDOC DISCHARGE SUMMARY ---
Final Diagnosis Discharge Date: 10/04/17 - Final Diagnosis (1) Tubal ligation status Is this a current diagnosis for this admission?: Yes (2) Status post repeat low transverse section Is this a current diagnosis for this admission?: Yes (3) Anemia affecting in third trimester Is this a current diagnosis for this admission?: Yes (4) Polyhydramnios affecting Is this a current diagnosis for this admission?: Yes (5) Gestational diabetes mellitus (GDM) affecting fifth Is this a current diagnosis for this admission?: Yes Discharge Data - Discharge Medication Home Medications: Hum Insulin NPH/Reg Insulin Hm [Humulin 50-50 Vial] 14 units SUBCUT ACBRKFST Hum Insulin NPH/Reg Insulin Hm [Humulin 50-50 Vial] 24 units SUBCUT ACSUPPER Insulin Aspart [Novolog Insulin (Aspart) 100 unit/mL] 10 units SUBCUT ACBRKFST 06/25/17 Insulin Aspart [Novolog Insulin (Aspart) 100 unit/mL] 12 units SUBCUT ACLUNCH Insulin Aspart [Novolog Insulin (Aspart) 100 unit/mL] 18 units SUBCUT ACSUPPER 06/25/17 Vit,Calc76/Iron/Folic [Prenatabs Rx Tablet] 1 each PO DAILY 07/23/17 Ferrous Sulfate [Feosol 325 mg Tablet] 325 mg PO BID #60 tablet 10/04/17 Ibuprofen [Motrin 800 mg Tablet] 800 mg PO Q6 #60 tablet 10/04/17 Oxycodone HCl/Acetaminophen [Percocet 5-325 mg Tablet] 1 tab PO Q4HP PRN #30 tablet 10/04/17 Gestational Age: 38 Reason(s) for Admission: Ceasarean Section-Repeat, Tubal Ligation, Obstetric Complications, PIH, Gestional Diabetes Procedures: NST, Ultrasound Intrapartum Procedure(s): : Low Cervical, Transverse - [place] Data Baby 1 Female Weight: 4.196 kg Home with Mother: No Complications: Yes - Diagnosis Test Laboratory: Temp Pulse Resp BP Pulse Ox 98.6 F 71 18 124/71 100 10/04/17 03:58 10/04/17 03:58 10/04/17 03:58 10/04/17 03:58 10/04/17 03:58 10/02/17 10/02/1717 09:19 10:42 05:55 RBC 4.27 3.79 Hgb 10.9 L 9.9 L Hct 32.2 L 28.8 L Urine Opiates Screen NEGATIVE - Discharge information/Instructions Discharge Activity: Activity As Tolerated, No Lifting Over 10 Pounds, No Lifting /Push/Pulling, Pelvic Rest Discharge Diet: As Tolerated, Regular Disposition: HOME, SELF-CARE Follow up with: [facility] in: 1, Weeks
[2017-10-04] MEDS: FERROUS SULFATE 325 MG TABLET PO SCH (10:03)
[2017-10-04] MEDS: DOCUSATE SODIUM 100 MG CAPSULE PO SCH (10:03)
[2017-10-04] MEDS: PRENATAL VITAMIN W-O CA NO5/FE FUMARATE/FA CAPSULE PO SCH (10:04)
[2017-10-04 12:45] VITALS: BP 125/73
--- NOTE | 2017-10-05 12:54 | Delivery Summary ---
Del Sum A-C Datetime Report Generated by CPN: 10/05/2017 12:54 DELIVERY PERSONNEL DELIVERY PERSONNEL: [id number] Delivery Doctor:: Dane Cruz DO Anesthesiologist:: Kun Vernon MD SALES DEVELOPMENT EXECUTIVE:: Fernando Romero CRNA Labor and Delivery Nurse:: Delia Mcqueen RNsurgical supervisor Nurse:: TESFAYE Marley Nurse Practitioner:: ALEXUS Eddy Nursery Nurse:: Monique Durham RN Touch Up Painter/PATTERN HANGER: Ciara Degroot CST Touch Up Painter/PATTERN HANGER: Brittany Arteaga OCULARIST MATERNAL INFORMATION Delivery Anesthesia: Spinal Medications After Delivery: Pitocin Bolus-Please Comment; Pitocin Drip 20 Units/1000ml NSS Estimated Blood Loss (ml): 600 Maternal Complications: None LABOR SUMMARY EDC: 10/17/2017 00:00 No. Babies in Womb: 1 (Annotations: Data stored by [facility] on behalf of user) Attempted: No Labor Anesthesia: None LABOR INFORMATION Reason for Induction: Not Applicable Oxytocin: N/A Group B Beta Strep: Negative Steroids Given: None Reason Steroids Not Administered: Not Applicable MEMBRANES Membranes Rupture Method: Artificial Rupture of Membranes: 10/02/2017 15:41 Length of Rupture (hr): 0.02 Amniotic Fluid Color: Clear Amniotic Fluid Amount: Small STAGES OF LABOR Stage 3 hr: 0 Stage 3 min: 0 VAGINAL DELIVERY Episiotomy: None Laceration #1: None Laceration Extension #1: N/A Sponge Count Correct: N/A Sharps Count Correct: N/A CSECTION DELIVERY Primary Indication: Repeat Elective CSection Urgency: Non-Scheduled CSection Incidence: Repeat Labor: No Labor Elective: Elective CSection Incision: Lower Uterine Transverse Sterilization Procedure: Ring and Clip BABY A INFORMATION Delivery Date/Time: 10/02/2017 15:42 Method of Delivery: Born in Route : No : N/A Forceps: N/A Vacuum Extraction: N/A Shoulder Dystocia : No PRESENTATION/POSITION BABY A Presentation: Cephalic Cephalic Presentation: Vertex PLACENTA INFORMATION BABY A Placenta Delivery Time : 10/02/2017 15:42 Placenta Method of Delivery: Spontaneous Placenta Status: Delivered SCORES BABY A Heart Rate 1 min: >100 bpm Resp Effort 1 min: Good Cry Reflex Irritability 1 min: Cough or Sneeze or Pulls Away Muscle Tone 1 min: Some Flexion of Extremities Color 1 min: Blue/Pale Resuscitation Effort 1 min: Tactile Stimulation; PPV/NCPAP SCORE 1 MIN: 7 Heart Rate 5 min: >100 bpm Resp Effort 5 min: Good Cry Reflex Irritability 5 min: Cough or Sneeze or Pulls Away Muscle Tone 5 min: Some Flexion of Extremities Color 5 min: Body Barrera, Extremities Blue Resuscitation Effort 5 min: Tactile Stimulation SCORE 5 MIN: 8 INFANT INFORMATION BABY A Gestational Age at Delivery: 37.6 Gestational Status: Early Term- 37- 38.6 Weeks Outcome : Liveborn Condition : Stable Infant Sex: Female IDENTIFICATION BABY A Infant Verification Date/Time: 10/02/2017 15:45 ID Band Number: [id number] Mother's Name Verified: Yes RN Verifying : K Matt RNC/B Mcqueen RN WEIGHT/LENGTH BABY A Birthweight (gm): 4200 Weight (lb): 9 Infant Weight (oz): 4 Length (in): 20.75 Infant Length (cm): 52.71 CORD INFORMATION BABY A No. Cord Vessels: 3 Nuchal Cord : N/A Cord Blood Taken: Yes-For Storage (Mom's Blood type +) Infant Suction: Mouth; Nose ASSESSMENT BABY A Infant Complications: None Infant Respirations: Appears Normal Skin to Skin: No Skin to Skin: No Sign Maintenance/ALS Called : No Care By: Darcy Durham RN/S Florencio DEL VALLEP Transferred To: Nursery BABY B INFORMATION : N/A
== END 2017-10-04 18:01 | disposition home or self-care (01) | DRG 765 ==
LOC: LC 09:06 → LR 09:19 → 2S 17:15
PROVIDERS: ADMIT Obstetrics & Gynecology; ATTEND Obstetrics & Gynecology
PROC: 10D00Z1 Extraction of Products of Conception, Low, Open Approach (ICD-10-PCS; principal; 2017-10-02)
PROC: 0UL70CZ Occlusion of Bilateral Fallopian Tubes with Extraluminal Device, Open Approach (ICD-10-PCS; 2017-10-02)
PROC: 4A1HXCZ Monitoring of Products of Conception, Cardiac Rate, External Approach (ICD-10-PCS; 2017-10-02)
PROC: 3E0234Z Introduction of Serum, Toxoid and Vaccine into Muscle, Percutaneous Approach (ICD-10-PCS; 2017-10-04)
PROC: 3E0234Z Introduction of Serum, Toxoid and Vaccine into Muscle, Percutaneous Approach (ICD-10-PCS; 2017-10-04)
PROC: 3E0234Z Introduction of Serum, Toxoid and Vaccine into Muscle, Percutaneous Approach (ICD-10-PCS; 2017-10-04)
DX: O34.211 Maternal care for low transverse scar from previous cesarean delivery (principal); O24.92 Unspecified diabetes mellitus in childbirth; O14.94 Unspecified pre-eclampsia, complicating childbirth; O40.3XX0 Polyhydramnios, third trimester, not applicable or unspecified; O99.02 Anemia complicating childbirth; D64.9 Anemia, unspecified; Z37.0 Single live birth; Z3A.37 37 weeks gestation of pregnancy; Z30.2 Encounter for sterilization; Z23 Encounter for immunization
CPT/HCPCS: 1961; 36415; 80053; 80307; 81001; 82570; 82962; 83615; 84156; 84550; 85025; 85027; 86592; 86850; 86900; 86901; 88307; 90686; 90707; 90715; 94799; J0690; J1170; J1815; J2250; J2405; J2590; J3010; J3490; J7120

== ENCOUNTER 2017-10-23 10:24 | Emergency (ER) | payer MEDICAID ==
[2017-10-23 10:35] VITALS: BP 119/73
[2017-10-23] MEDS ORDERED: IBUPROFEN 800 MG TABLET PO ONE (11:30)
[2017-10-23] MEDS ORDERED: LORATADINE 10 MG TABLET PO ONE (11:30)
[2017-10-23] MEDS ORDERED: PSEUDOEPHEDRINE HCL 30 MG TABLET PO ONE (11:30)
[2017-10-23] MEDS ORDERED: GUAIFENESIN 600 MG TABLET.SA PO ONE (11:30)
--- NOTE | 2017-10-23 11:36 | ER Document Report ---
ED Flu Like - General Chief Complaint: Sore Throat Stated Complaint: SORE THROAT FEVER HEADACHE Time Seen by Provider: 10/23/17 11:01 Notes: 32-year-old female presents to ED for cough cold congestion sore throat and headache off and on for the last 3 weeks. TRAVEL OUTSIDE OF THE [place] IN LAST 30 DAYS: No - HPI Onset: Other - 3 days Timing/Duration: Persistent Quality of pain: Achy Severity: Mild Pain Level: 1 Associated symptoms: Body/muscle aches, Chills, Nonproductive cough, Fever, Rhinnorhea, Sinus pain/drainage Similar symptoms previously: Yes Recently seen / treated by doctor: No - Related Data Allergies/Adverse Reactions: No Known Allergies Allergy (Verified 10/23/17 10:35) Past Medical History - General Information source: Patient - Social History Smoking Status: Never Smoker Cigarette use (# per day): No Chew tobacco use (# tins/day): No Smoking Education Provided: No Frequency of alcohol use: None Drug Abuse: None Occupation: [employer] Lives with: Family Family History: Reviewed & Not Pertinent Patient has suicidal ideation: No Patient has homicidal ideation: No - Past Medical History Cardiac Medical History: Reports: None Pulmonary Medical History: Reports: None EENT Medical History: Reports: None Neurological Medical History: Reports: None Endocrine Medical History: Reports: Hx Diabetes Mellitus Type 2 Renal/ Medical History: Reports: None. Denies: Hx Peritoneal Dialysis Malignancy Medical History: Reports: None GI Medical History: Reports: None Musculoskeltal Medical History: Reports None Skin Medical History: Reports None Psychiatric Medical History: Reports: None Traumatic Medical History: Reports: None Infectious Medical History: Reports: None Past Surgical History: Reports: Hx Section, Hx Cholecystectomy - Immunizations Hx Diphtheria, Pertussis, Tetanus Vaccination: Yes Review of Systems - Review of Systems Constitutional: Chills, Fever, Recent illness EENT: Nose discharge, Sinus discharge, Throat pain Cardiovascular: No symptoms reported Respiratory: Cough Gastrointestinal: No symptoms reported Genitourinary: No symptoms reported Female Genitourinary: No symptoms reported Musculoskeletal: No symptoms reported Skin: No symptoms reported Hematologic/Lymphatic: No symptoms reported Neurological/Psychological: No symptoms reported -: Yes All other systems reviewed and negative Physical Exam - Vital signs Vitals: Temp Pulse Resp BP Pulse Ox 98.7 F 84 16 119/73 98 10/23/17 10:33 10/23/17 10:33 10/23/17 10:33 10/23/17 10:33 10/23/17 10:33 Interpretation: Normal - General General appearance: Appears well, Alert - HEENT Head: Normocephalic, Atraumatic Eyes: Normal Pupils: PERRL Ears: Normal External canal: Normal Tympanic membrane: Normal Sinus: Normal, Mastoid, Maxillary, Tenderness. No: Redness, Swelling Nasal: Purulent discharge, Swelling Mucous membranes: Normal Pharynx: Post nasal drainage Neck: Normal - Respiratory Respiratory status: No respiratory distress Chest status: Nontender Breath sounds: Nonproductive cough. No: Productive cough, Rales, Rhonchi, Stridor Chest palpation: Normal - Cardiovascular Rhythm: Regular Heart sounds: Normal auscultation Murmur: No - Abdominal Inspection: Normal Distension: No distension Bowel sounds: Normal Tenderness: Nontender Organomegaly: No organomegaly - Back Back: Normal, Nontender - Extremities General upper extremity: Normal inspection, Nontender, Normal color, Normal ROM , Normal temperature General lower extremity: Normal inspection, Nontender, Normal color, Normal ROM , Normal temperature, Normal weight bearing. No: Cherie's sign - Neurological Neuro grossly intact: Yes Cognition: Normal Orientation: AAOx4 Brenda Coma Scale Eye Opening: Spontaneous Brenda Coma Scale Verbal: Oriented Brenda Coma Scale Motor: Obeys Commands Brenda Coma Scale Total: 15 Speech: Normal Motor strength normal: LUE, RUE, LLE, RLE Sensory: Normal - Psychological Associated symptoms: Normal affect, Normal mood - Skin Skin Temperature: Warm Skin Moisture: Dry Skin Color: Normal Course - Re-evaluation Re-evalutation: 10/23/17 11:32 Patient will be treated with Claritin and Sudafed Mucinex and ibuprofen. Patient was given instructions on use of salt and soda solution to gargle with for her sore throat. Patient will be discharged home to follow-up with her primary doctor. Patient was given instructions on how to protect her infant from her cold. - Vital Signs Vital signs: Temp Pulse Resp BP Pulse Ox 98.7 F 84 16 119/73 98 10/23/17 10:33 10/23/17 10:33 10/23/17 10:33 10/23/17 10:33 10/23/17 10:33 Discharge - Discharge Clinical Impression: Upper respiratory infection, [place] [employer] Condition: Stable Disposition: HOME, SELF-CARE Instructions: Family Physicians / Practices Additional Instructions: UPPER RESPIRATORY ILLNESS: You have a viral infection of the respiratory passages -- a "cold." This common infection causes nasal congestion, drainage, and often sore throat and cough. It is highly contagious. The disease usually lasts about 10 to 14 days. There is no "cure" for the viral infection -- it must run its course. If there is a complication, such as bacterial infection in the nose, sinuses, middle ear, or bronchial tubes, antibiotics may be required. The antibiotics won't affect the virus. Drink plenty of fluids. A humidifier may help. An expectorant medication or decongestant may make you more comfortable. Use acetaminophen or ibuprofen for fever or aches. See the doctor if fever persists over two days, if there is any significant worsening of your symptoms, or if you simply fail to improve as expected. You were given Claritin and Sudafed Mucinex and ibuprofen for your cough and cold symptoms. As we discussed to protect her baby from your cold symptoms please wash her face and hands well before feeding the baby also draped a blanket or something of your closed to prevent prevent your germs from getting on the baby. Do this each time you feed change her care for the baby to prevent her germs from getting on him. USE OF ACETAMINOPHEN (Tylenol): Acetaminophen may be taken for pain relief or fever control. It's much safer than aspirin, offering a wider range of "safe" dosages. It is safe during . Some brand names are Tylenol, Panadol, Datril, Anacin 3, Tempra, and Liquiprin. Acetaminophen can be repeated every four hours. The following are maximum recommended dosages: >89 pounds or adults 650 mg to 900 mg Acetaminophen can be repeated every four hours. Maximum dose not to exceed 4000 mg a day. FOLLOW-UP CARE: If you have been referred to a physician for follow-up care, call the physician s office for an appointment as you were instructed or within the next two days. If you experience worsening or a significant change in your symptoms, notify the physician immediately or return to the Emergency Department at any time for re-evaluation. Forms: Parent Work Note
== END 2017-10-23 11:55 | disposition home or self-care (01) ==
LOC: ER 10:24
DX: J06.9 Acute upper respiratory infection, unspecified (principal); J02.9 Acute pharyngitis, unspecified; R50.9 Fever, unspecified; R51 Headache; R05 Cough; M79.1 Myalgia
CPT/HCPCS: 99282; J3490 ×3

== ENCOUNTER 2018-11-15 19:23 | Emergency (ER) | payer MEDICAID ==
--- NOTE | 2018-11-15 21:29 | ER Document Report ---
ED General - General Chief Complaint: Mouth Injury Stated Complaint: MOUTH SORE Time Seen by Provider: 11/15/18 20:09 Notes: Patient is a 33-year-old female who presents to the emergency department with a chief complaint of mouth and throat pain. Her symptoms have been going on for the past 2 days. She noticed she had white spots in the back of her throat. She states that her friend had thrush, and she is having similar symptoms. She denies any sick contacts that she knows of. She denies any blisters on her hands, toes, or in the back of her throat. She denies any fever. She does not have difficulty breathing. She denies a cough, rhinorrhea, or ear pain. TRAVEL OUTSIDE OF THE [place] IN LAST 30 DAYS: No - Related Data Allergies/Adverse Reactions: No Known Allergies Allergy (Verified 10/23/17 10:35) Past Medical History - Social History Smoking Status: Never Smoker Frequency of alcohol use: None Drug Abuse: None Family History: Reviewed & Not Pertinent Patient has suicidal ideation: No Patient has homicidal ideation: No Endocrine Medical History: Reports: Hx Diabetes Mellitus Type 2 Renal/ Medical History: Denies: Hx Peritoneal Dialysis Past Surgical History: Reports: Hx Section - x2, Hx Cholecystectomy - Immunizations Hx Diphtheria, Pertussis, Tetanus Vaccination: Yes Review of Systems - Review of Systems Notes: REVIEW OF SYSTEMS: CONSTITUTIONAL : Denies recent illness. Denies recent unintentional weight loss. Denies fever, chills, or sweats. EENT: See HPI CARDIOVASCULAR: Denies chest pain. RESPIRATORY: Denies shortness of breath, cough, congestion, difficulty breathing, or wheezing. GASTROINTESTINAL: Denies nausea, vomiting, and diarrhea. Denies abdominal pain. Denies constipation. GENITOURINARY: Denies difficulty urinating, burning, blood in urine, urgency or frequency. MUSCULOSKELETAL: Denies neck and back pain. Denies joint pain or swelling. SKIN: Denies rash, itchiness, or lesions HEMATOLOGIC : Denies easy bruising or bleeding. LYMPHATIC: Denies swollen, painful, enlarged glands. NEUROLOGICAL: Denies no numbness or tingling denies weakness. Denies headache. Denies altered mental status. Denies alteration in speech. PSYCHIATRIC: Denies stress, anxiety, alteration in sleep patterns, or depression. All other systems reviewed and negative. Physical Exam - Vital signs Vitals: Temp Pulse Resp BP Pulse Ox 98.2 F 95 16 138/79 H 98 11/15/18 19:28 11/15/18 19:28 11/15/18 19:28 11/15/18 19:28 11/15/18 19:28 - Notes Notes: PHYSICAL EXAMINATION: GENERAL: Appears well, healthy, well-nourished, no acute distress. HEAD: Normocephalic, atraumatic. EYES: PERRL, conjunctiva normal, all extraocular movements intact, sclera nonicteric ENT: Dry mucous membranes. Small pustules noted to oropharynx. White-korin color noted to tongue. NECK: Supple, no noticeable swelling, redness, rash. Normal range of motion. LUNGS: Equal breath sounds bilaterally and clear to auscultation. No wheezes rales or rhonchi. CARDIOVASCULAR: S1-S2, regular rate, regular rhythm. Radial pulses 2+, normal. ABDOMEN: Normoactive bowel sounds. Soft, nontender, no guarding, no rebound tenderness, and no masses palpated. EXTREMITIES: Normal strength and range of motion, no pitting or edema. No cya nosis. NEUROLOGICAL: Moves all extremities upon command. Strength 5/5 in all extremities. PSYCH: Normal mood, normal affect. SKIN: Warm, dry. No rash, lesions, ulcerations noted. Normal skin turgor. Course - Re-evaluation Re-evalutation: Differential diagnosis includes acute pharyngitis, strep throat, peritonsillar abscess, thrush, or other upper respiratory etiology. 11/15/18 21:29 Patient's rapid strep is negative at this time. I have reevaluated the patient and I do not suspect she has Zeb's angina, peritonsillar abscess, or any other life-threatening issue at this time. She will be sent home with Magic mouthwash to help with her symptoms. Verbal discharge instructions were given to the patient. She verbalized understanding. She is stable for discharge. - Vital Signs Vital signs: Temp Pulse Resp BP Pulse Ox 98.0 F 90 18 130/77 H 97 11/15/18 21:50 11/15/18 21:50 11/15/18 21:50 11/15/18 21:50 11/15/18 21:50 Discharge - Discharge Clinical Impression: Mouth pain, Throat pain Condition: Stable Disposition: HOME, SELF-CARE Additional Instructions: You have been seen in the emergency department for mouth pain and throat pain. Your strep test was negative. You have been given Magic mouthwash, medication to help with your mouth pain. Please take this as directed. If you develop a fever greater than 100.4 F, are unable to swallow at all, or have any symptoms that are worrisome to you, please return to the emergency department. Prescriptions: Nystatin/Dexameth/Diphen [Magic Mouthwash ([facility] Formula) Susp] 5 ml PO QID #120 ml
[2018-11-15 21:52] VITALS: BP 130/77
== END 2018-11-15 21:52 | disposition home or self-care (01) ==
LOC: ER 19:23
DX: K13.79 Other lesions of oral mucosa (principal); R07.0 Pain in throat; Z90.49 Acquired absence of other specified parts of digestive tract
CPT/HCPCS: 87070; 87077; 87880; 99283

== ENCOUNTER 2019-08-30 10:20 | Emergency (ER) | payer MEDICAID ==
[2019-08-30 10:27] VITALS: BP 139/77
[2019-08-30] MEDS ORDERED: LIDOCAINE 1% INJ-PF (10 MG/ML) 30 ML SDV INJ ONE (10:33)
--- NOTE | 2019-08-30 10:37 | ER Document Report ---
HPI - HPI Time Seen by Provider: 08/30/19 10:31 Notes: Patient is a 33-year-old female who presents complaining of possible abscess to her lower mid abdominal/suprapubic area is been present for the past several days. Patient states that it started small and has grown in size. She has not noticed any drainage or streaking. Denies drug allergies. No history of MRSA or IV drug abuse. Denies any headache, fever, URI, sore throat, chest pain, palpitations, syncope, cough, shortness of breath, wheeze, dyspnea, abdominal pain, nausea/vomiting/diarrhea, urinary retention, dysuria, hematuria, or rash. - ROS Systems Reviewed and Negative: Yes All other systems reviewed and negative - REPRODUCTIVE Reproductive: DENIES: : Past Medical History - Social History Smoking Status: Never Smoker Family History: Reviewed & Not Pertinent Endocrine Medical History: Reports: Hx Diabetes Mellitus Type 2 Renal/ Medical History: Denies: Hx Peritoneal Dialysis Past Surgical History: Reports: Hx Section - x2, Hx Cholecystectomy - Immunizations Hx Diphtheria, Pertussis, Tetanus Vaccination: Yes Vertical Provider Document - CONSTITUTIONAL Agree With Documented VS: Yes Notes: PHYSICAL EXAMINATION: GENERAL: Well-appearing, well-nourished and in no acute distress. LUNGS: Breath sounds clear to auscultation bilaterally and equal. No wheezes rales or rhonchi. HEART: Regular rate and rhythm without murmurs, rubs, gallops. ABDOMEN: Soft, nontender, nondistended abdomen. No guarding, no rebound. Nor mal bowel sounds present. No CVA tenderness bilaterally. Musculoskeletal: FROM to passive/active. Strength 5+/5. Extremities: No cyanosis, clubbing, or edema b/l. Peripheral pulses 2+. Capillary refill less than 3 seconds. NEUROLOGICAL: Normal speech, normal gait. PSYCH: Normal mood, normal affect. SKIN: lower abdominal wall: there is an erythemic fluctuant tender abscess noted without streaks or discharge. + mild induration. Area involved is approx 2-2.5cm. - INFECTION CONTROL TRAVEL OUTSIDE OF THE [place] IN LAST 30 DAYS: No Course - Re-evaluation Re-evalutation: 08/30/19 Patient is an afebrile, well-hydrated, 33-year-old female who presents to the emergency department with a smaller abscess to her lower abdomen needing incision and drainage. Vitals are acceptable without significant tachycardia, tachypnea, or hypoxia. PE is otherwise unremarkable. Patient is nontoxic- appearing and is tolerating p.o. without difficulty. Incision and drainage was performed successfully without any complications and packing was placed. Wound dressing was placed and wound instructions reviewed. Wound culture was obtained. No further labs or imaging warranted. Low suspicion for any sepsis, meningitis, SJS, or other systemic emergent condition at this time. Patient to monitor symptoms for any acute changes and seek medical attention if so. Recheck with your PCM in 2-3 days. Consider consult with the general surgeon. Return to the ED with any worsening/concerning symptoms as reviewed. Patient is in agreement. - Vital Signs Vital signs: Temp Pulse Resp BP Pulse Ox 98.4 F 87 18 139/77 H 97 08/30/19 10:26 08/30/19 10:26 08/30/19 10:26 08/30/19 10:26 08/30/19 10:26 Procedures - Incision and Drainage Lower Abdomen Type: Simple Anesthetic type: 1% Lidocaine mL's of anesthetic: 4 Blade size: 11 I&D procedure: Chlorprep applied, Iodoform packing placed, Sterile dressing applied Incision Method: Incision made by scalpel Amount/type of drainage: abundant purulent Discharge - Discharge Clinical Impression: Abscess Condition: Stable Disposition: HOME, SELF-CARE Instructions: Abscess ([facility]), Cephalexin ([facility]), Trimethoprim-Sulfa ([facility]) Additional Instructions: Do not shower or bathe for 24 hours. After 24 hours you may shower but no submersion of the wound under water. Keep the original dressing on the wound for 24 hours unless the drainage soaks through. Change the dressing daily thereafter and use a small amount of triple antibiotic ointment over the open wound. See your PCM in 2-3 days for recheck and continue direction for wound packing. Monitor for any signs of worsening pain or redness, streaks, and/or fever. Return to the ED if noticing any of the above symptoms or as needed. Take medications as directed. Prescriptions: Sulfamethoxazole/Trimethoprim [Bactrim Ds Tablet] 1 each PO BID #20 tablet Cephalexin Monohydrate [Keflex 500 mg Capsule] 500 mg PO TID #30 capsule Forms: Return to Work, Elevated Blood Pressure Referrals: SARANYA PRADHAN MD [ACTIVE STAFF] - Follow up as needed
== END 2019-08-30 11:28 | disposition home or self-care (01) ==
LOC: ER 10:20
PROC: 0H97XZZ Drainage of Abdomen Skin, External Approach (ICD-10-PCS; principal; 2019-08-30)
DX: L02.211 Cutaneous abscess of abdominal wall (principal); E11.9 Type 2 diabetes mellitus without complications
CPT/HCPCS: 87070; 87205; 87075; 10060; A6266; J3490; 99283

== ENCOUNTER 2019-09-15 17:31 | Emergency (ER) | payer MEDICAID ==
[2019-09-15] MEDS ORDERED: ACETAMINOPHEN 325 MG TABLET PO ONE (17:44)
[2019-09-15] MEDS ORDERED: PROMETHAZINE HCL 25 MG TABLET PO ONE (17:44)
--- NOTE | 2019-09-15 17:44 | ER Document Report ---
ED Medical Screen (RME) - General Chief Complaint: Abscess Stated Complaint: ABSCESS/PELVIC AREA,NAUSEA Time Seen by Provider: 09/15/19 17:39 Primary Care Provider: MAGGIE HARRISON PA [Primary Care Provider] - Follow up as needed Mode of Arrival: Ambulatory Information source: Patient Notes: 33-year-old female presents to ED for complaint of abscess at her a yoselin. She states she was seen in the emergency room about 2 weeks ago and had a lump that now it is infected. She is also having nausea with no vomiting yet. Last menstrual period started on August 29, 2019. Patient is alert oriented respirations regular unlabored speaking. I have greeted and performed a rapid initial assessment of this patient. A comprehensive ED assessment and evaluation of the patient, analysis of test results and completion of medical decision making process will be conducted by an additional ED providers. TRAVEL OUTSIDE OF THE [place] IN LAST 30 DAYS: No - Related Data Allergies/Adverse Reactions: No Known Allergies Allergy (Verified 10/23/17 10:35) Past Medical History Endocrine Medical History: Reports: Hx Diabetes Mellitus Type 2 Renal/ Medical History: Denies: Hx Peritoneal Dialysis Past Surgical History: Reports: Hx Section - x2, Hx Cholecystectomy - Immunizations Hx Diphtheria, Pertussis, Tetanus Vaccination: Yes Physical Exam - Vital signs Vitals: Temp Pulse Resp BP Pulse Ox 98.1 F 95 18 137/83 H 98 09/15/19 17:38 09/15/19 17:38 09/15/19 17:38 09/15/19 17:38 09/15/19 17:38 Course - Vital Signs Vital signs: Temp Pulse Resp BP Pulse Ox 98.1 F 95 18 137/83 H 98 09/15/19 17:38 09/15/19 17:38 09/15/19 17:38 09/15/19 17:38 09/15/19 17:38 Doctor's Discharge - Discharge Referrals: MAGGIE HARRISON PA [Primary Care Provider] - Follow up as needed
[2019-09-15] MEDS ORDERED: LIDOCAINE 1% INJ-PF (10 MG/ML) 30 ML SDV INJ ONE (18:54)
--- NOTE | 2019-09-15 18:57 | ER Document Report ---
HPI - HPI Time Seen by Provider: 09/15/19 17:39 Pain Level: 4 Notes: Patient is a 33-year-old female who presents complaining of possible abscess to her lower mid abdominal/suprapubic area is been present for the past 4 days. I did do an I&D a little over 2 weeks ago and she follwed up with general surgery. Pt states that she finished the antibiotics and states that it had healed since, but started swelling and drained once over the past 4 days with increased pain. Denies drug allergies. No history of MRSA or IV drug abuse. Denies any headache, fever, URI, sore throat, chest pain, palpitations, syncope, cough, shortness of breath, wheeze, dyspnea, abdominal pain, nausea/vomiting/diarrhea, urinary retention, dysuria, hematuria, or rash. - ROS Systems Reviewed and Negative: Yes All other systems reviewed and negative - NEURO Neurology: REPORTS: Headache - GASTROINTESTINAL Gastrointestinal: REPORTS: Abdominal Pain - REPRODUCTIVE Reproductive: DENIES: : Past Medical History - General Information source: Patient - Social History Smoking Status: Current Every Day Smoker Chew tobacco use (# tins/day): No Frequency of alcohol use: None Drug Abuse: None Family History: Reviewed & Not Pertinent Patient has suicidal ideation: No Patient has homicidal ideation: No Endocrine Medical History: Reports: Hx Diabetes Mellitus Type 2 Renal/ Medical History: Denies: Hx Peritoneal Dialysis Past Surgical History: Reports: Hx Section - x2, Hx Cholecystectomy - Immunizations Hx Diphtheria, Pertussis, Tetanus Vaccination: Yes Vertical Provider Document - CONSTITUTIONAL Notes: PHYSICAL EXAMINATION: GENERAL: Well-appearing, well-nourished and in no acute distress. LUNGS: Breath sounds clear to auscultation bilaterally and equal. No wheezes rales or rhonchi. HEART: Regular rate and rhythm without murmurs, rubs, gallops. ABDOMEN: Soft, nontender, nondistended abdomen. No guarding, no rebound. Normal bowel sounds present. No CVA tenderness bilaterally. Musculoskeletal: FROM to passive/active. Strength 5+/5. Extremities: No cyanosis, clubbing, or edema b/l. Peripheral pulses 2+. Capillary refill less than 3 seconds. NEUROLOGICAL: Normal speech, normal gait. PSYCH: Normal mood, normal affect. SKIN: lower abdominal wall: there is an erythemic fluctuant tender abscess noted without streaks or discharge. + mild induration. Area involved is approx 2cm. - INFECTION CONTROL TRAVEL OUTSIDE OF THE [place] IN LAST 30 DAYS: No Course - Re-evaluation Re-evalutation: 09/15/19 Patient is an afebrile, well-hydrated, 33-year-old female who presents to the emergency department with a smaller abscess to her lower abdomen needing incision and drainage. Vitals are acceptable without significant tachycardia, tachypnea, or hypoxia. PE is otherwise unremarkable. Patient is nontoxic- appearing and is tolerating p.o. without difficulty. Incision and drainage was performed successfully without any complications and packing was placed. The pocket itself was large and a good amount of packing was placed. Wound dressing was placed and wound instructions reviewed. Wound culture was obtained. No further labs or imaging warranted. Low suspicion for any sepsis, meningitis, SJS, or other systemic emergent condition at this time. Patient to monitor symptoms for any acute changes and seek medical attention if so. Recheck with your PCM in 2-3 days. Keep f/u with surgery on Monday. Return to the ED with any worsening/concerning symptoms as reviewed. Patient is in agreement. - Vital Signs Vital signs: Temp Pulse Resp BP Pulse Ox 98.1 F 95 18 137/83 H 98 09/15/19 17:38 09/15/19 17:38 09/15/19 17:38 09/15/19 17:38 09/15/19 17:38 Procedures - Incision and Drainage suprapubic area Type: Simple Anesthetic type: 1% Lidocaine mL's of anesthetic: 5 Blade size: 11 I&D procedure: Other - chlorhexadine/saline Incision Method: Incision made by scalpel Amount/type of drainage: abundant purulent Discharge - Discharge Clinical Impression: Abscess Condition: Stable Disposition: HOME, SELF-CARE Instructions: Cephalexin ([facility]), Trimethoprim-Sulfa ([facility]) Additional Instructions: Do not shower or bathe for 24 hours. After 24 hours you may shower but no submersion of the wound under water. Keep the original dressing on the wound for 24 hours unless the drainage soaks through. Change the dressing daily thereafter and use a small amount of triple antibiotic ointment over the open wound. See your PCM in 2-3 days for recheck and continue direction for wound packing. Monitor for any signs of worsening pain or redness, streaks, and/or fever. Return to the ED if noticing any of the above symptoms or as needed. Take medications as directed. Prescriptions: Sulfamethoxazole/Trimethoprim [Bactrim Ds Tablet] 1 each PO BID #20 tablet Fluconazole [Diflucan] 150 mg PO ONCE PRN #1 tablet PRN Reason: Cephalexin Monohydrate [Keflex 500 mg Capsule] 500 mg PO TID #30 capsule Forms: Elevated Blood Pressure Referrals: MAGGIE HARRISON PA [Primary Care Provider] - Follow up as needed NITIN BRINK MD [ACTIVE STAFF] - Follow up as needed
[2019-09-15 21:14] VITALS: BP 130/88
== END 2019-09-15 20:22 | disposition home or self-care (01) ==
LOC: ER 17:31
DX: L02.211 Cutaneous abscess of abdominal wall (principal); R10.30 Lower abdominal pain, unspecified; R51 Headache; F17.200 Nicotine dependence, unspecified, uncomplicated; E11.9 Type 2 diabetes mellitus without complications; Z90.49 Acquired absence of other specified parts of digestive tract
CPT/HCPCS: 87070; 87205; 10060; A6266; J3490 ×2; 87075; 99282

== ENCOUNTER 2019-09-18 15:27 | Emergency (ER) | payer MEDICAID ==
--- NOTE | 2019-09-18 16:52 | ER Document Report ---
ED Medical Screen (RME) - General Stated Complaint: REVIST/LEG INJURY Time Seen by Provider: 09/18/19 16:50 Primary Care Provider: MAGGIE HARRISON PA [Primary Care Provider] - Follow up as needed Information source: Patient Notes: Patient presents for wound recheck of an abscess to the suprapubic area. Patient states she has been dealing with this abscess for the past 3 weeks. Patient had to have the area re-incised and drained 2 days ago. Patient is here for packing change. Patient is drinking a sugared drink and has a history of diabetes. Patient states that she has not been able to get her insulin for sev eral months and has been off of her medication. I have greeted and performed a rapid initial assessment of this patient. A comprehensive ED assessment and evaluation of the patient, analysis of test results and completion of the medical decision making process will be conducted by additional ED providers. TRAVEL OUTSIDE OF THE [place] IN LAST 30 DAYS: No - Related Data Allergies/Adverse Reactions: No Known Allergies Allergy (Verified 09/18/19 16:49) Past Medical History Endocrine Medical History: Reports: Hx Diabetes Mellitus Type 2 Renal/ Medical History: Denies: Hx Peritoneal Dialysis Past Surgical History: Reports: Hx Section - x2, Hx Cholecystectomy - Immunizations Hx Diphtheria, Pertussis, Tetanus Vaccination: Yes Physical Exam - Vital signs Vitals: Temp Pulse Resp BP Pulse Ox 98.2 F 91 18 128/85 H 98 09/18/19 15:58 09/18/19 15:58 09/18/19 15:58 09/18/19 15:58 09/18/19 15:58 - General General appearance: Appears well, Alert Notes: Cheeks flushed, wound to the pubis unable to be visualized in triage area Course - Vital Signs Vital signs: Temp Pulse Resp BP Pulse Ox 98.2 F 91 18 128/85 H 98 09/18/19 15:58 09/18/19 15:58 09/18/19 15:58 09/18/19 15:58 09/18/19 15:58 Doctor's Discharge - Discharge Referrals: MAGGIE HARRISON PA [Primary Care Provider] - Follow up as needed
[2019-09-18 17:24] LABS: ABSOLUTE BASOPHILS # (AUTO) 0.1 10^3/uL (0.0-0.2); ABSOLUTE EOSINOPHILS # (AUTO) 0.1 10^3/uL (0.0-0.6); ABSOLUTE LYMPHOCYTES (AUTO) 3.3 10^3/uL (0.5-4.7); ABSOLUTE MONOCYTES (AUTO) 0.7 10^3/uL (0.1-1.4); ABSOLUTE NEUT (AUTO) 6.9 10^3/uL (1.7-8.2); BASOPHILS % (AUTO) 0.9 % (0-2); EOSINOPHILS % (AUTO) 1.2 % (0-6); HEMATOCRIT 38.6 % (36.0-47.0); HEMOGLOBIN 12.9 g/dL (12.0-15.5); LYMPHOCYTES % (AUTO) 29.4 % (13-45); MEAN CORPUSCULAR HEMOGLOBIN 26.8 pg (27.0-33.4); MEAN CORPUSCULAR HGB CONC 33.3 g/dL (32.0-36.0); MEAN CORPUSCULAR VOLUME 81 fl (80-97); MONOCYTES % (AUTO) 6.3 % (3-13); PLATELET COUNT 330 10^3/uL (150-450); RED BLOOD COUNT 4.79 10^6/uL (3.72-5.28); RED CELL DISTRIBUTION WIDTH 14.2 % (11.5-14.0); SEGMENTED NEUTROPHILS % (AUTO) 62.2 % (42-78); TOTAL CELLS COUNTED % (AUTO) 100 %; WHITE BLOOD COUNT 11.1 10^3/uL (4.0-10.5)
[2019-09-18 17:43] LABS: ANION GAP 15 (5-19); BLOOD UREA NITROGEN 13 mg/dL (7-20); CALCIUM 9.5 mg/dL (8.4-10.2); CARBON DIOXIDE 23 mmol/L (22-30); CHLORIDE 96 mmol/L (98-107); GLUCOSE 378 mg/dL (75-110); POTASSIUM 3.9 mmol/L (3.6-5.0)
--- NOTE | 2019-09-18 20:01 | ER Document Report ---
ED General - General Chief Complaint: Wound Recheck Stated Complaint: REVIST/LEG INJURY Time Seen by Provider: 09/18/19 16:50 Primary Care Provider: MAGGIE HARRISON PA [Primary Care Provider] - Follow up as needed TRAVEL OUTSIDE OF THE [place] IN LAST 30 DAYS: No - Related Data Allergies/Adverse Reactions: No Known Allergies Allergy (Verified 09/18/19 16:49) Home Medications: antibiotica and ibuprofen Past Medical History - General Information source: Patient - Social History Smoking Status: Never Smoker Chew tobacco use (# tins/day): No Frequency of alcohol use: Rare Drug Abuse: None Family History: Reviewed & Not Pertinent Patient has suicidal ideation: No Patient has homicidal ideation: No Endocrine Medical History: Reports: Hx Diabetes Mellitus Type 2 Renal/ Medical History: Denies: Hx Peritoneal Dialysis Past Surgical History: Reports: Hx Section - x2, Hx Cholecystectomy - Immunizations Hx Diphtheria, Pertussis, Tetanus Vaccination: Yes Physical Exam - Vital signs Vitals: Temp Pulse Resp BP Pulse Ox 98.2 F 91 18 128/85 H 98 09/18/19 15:58 09/18/19 15:58 09/18/19 15:58 09/18/19 15:58 09/18/19 15:58 - Notes Notes: Patient presents emergency department for a recheck. She was seen here 3 days ago where an abscess underwent I&D. She was treated with Bactrim and Keflex was to be taking. Had minimal pain no fevers nausea vomiting also reports he had a similar abscess in the beginning of the month and underwent I&D and a antibiotics and packing. She says the cavity never healed but the drainage stopped until a few days ago. Patient has a history of diabetes but is been off her medications for several months she denies any nausea vomiting or frequent urination Past medical history history significant for diabetes was on insulin in the past does not smoke less. Her LMP was 2 weeks ago Review of systems all systems were reviewed and acutely negative except as in HPI PHYSICAL EXAMINATION: GENERAL: Well-appearing, well-nourished and in no acute distress. HEAD: Atraumatic, normocephalic. EYES: Pupils equal round and reactive to light, extraocular movements intact, sclera anicteric, conjunctiva are normal. ENT: nares patent, oropharynx clear without exudates. Moist mucous membranes. NECK: Normal range of motion, supple without lymphadenopathy LUNGS: Breath sounds clear to auscultation bilaterally and equal. No wheezes rales or rhonchi. HEART: Regular rate and rhythm without murmurs ABDOMEN: Soft, resting in place in the suprapubic area that is an old scar. There is packing in place that was removed with scant amount of discharge there is no additional discharge from the wound. It was explored with a Q-tip and again no discharge or surrounding redness EXTREMITIES: Normal range of motion, no pitting or edema. No cyanosis. NEUROLOGICAL: No focal neurological deficits. Moves all extremities spontaneously and on command. PSYCH: Normal mood, normal affect. SKIN: Warm, Dry, normal turgor, no rashes or lesions noted. Course - Re-evaluation Re-evalutation: 09/18/19 20:01 ED patient has remained stable Medical decision making presents for a wound recheck. Wound appears to be doing well and I do not think it needs to be repacked. She is not acidotic been off insulin for several months so I do not think she needs admission for this. Will be started back on her insulin and given a dose here emphasized the need for her to stay on her insulin and follow-up with her family doctor next week 09/18/19 20:45 we will start patient on Humulin and NovoLog that she was on in the past at a lower dose - Vital Signs Vital signs: Temp Pulse Resp BP Pulse Ox 98.2 F 91 18 128/85 H 98 09/18/19 15:58 09/18/19 15:58 09/18/19 15:58 09/18/19 15:58 09/18/19 15:58 - Laboratory Result Diagrams: 09/18/19 17:07 09/18/19 17:07 Laboratory results interpreted by me: 09/18/19 09/18/19 17:07 17:07 WBC 11.1 H MCH 26.8 L RDW 14.2 H Sodium 134.4 L Chloride 96 L Creatinine 0.42 L Glucose 378 H 09/18/19 20:00 Labs were reviewed and sugar noted Discharge - Discharge Clinical Impression: Encounter for wound re-check Diabetes Qualifiers: Diabetes mellitus type: type 1 Diabetes mellitus complication status: with hyperglycemia Qualified Code(s): E10.65 - Type 1 diabetes mellitus with hyperglycemia Condition: Good Disposition: HOME, SELF-CARE Instructions: Abscess ([facility]), Diabetes ([facility]) Additional Instructions: Clean wound twice a day with peroxide on a Q-tip check your sugar twice a day and record the results is very important that you stay on your insulin and follow-up with your doctor next week Prescriptions: NPH, Human Insulin Isophane [Humulin N (NPH) Insulin 100 Unit/1 ml 3 ml] See Protocol INJ ASDIR PRN #1 bottle PRN Reason: Insulin NPH Human Isophane [Humulin N Kwikpen] 100 unit SQ ASDIR PRN #1 insuln.pen PRN Reason: Syringe-Needle,Insulin,0.5 ml [Insulin Syringe] 1 each MC ASDIR PRN #120 disp.syrin PRN Reason: Insulin Aspart Protam & Aspart [Novolog Mix 70-30 Vial] See Protocol SQ BID #1 bottle Forms: Elevated Blood Pressure Referrals: MAGGIE HARRISON PA [Primary Care Provider] - Follow up as needed
[2019-09-18] MEDS ORDERED: HUM INSULIN NPH/REG INSULIN HM 100 UNIT/1 ML 3 ML SUBCUT ONE (20:23)
[2019-09-18 21:31] VITALS: BP 117/85
== END 2019-09-18 21:15 | disposition home or self-care (01) ==
LOC: ER 15:27
DX: Z48.01 Encounter for change or removal of surgical wound dressing (principal); L02.91 Cutaneous abscess, unspecified; E10.65 Type 1 diabetes mellitus with hyperglycemia
CPT/HCPCS: 36415; 85025; 80048; J1815; 99283

== ENCOUNTER 2020-01-14 14:44 | Emergency (ER) | payer MEDICAID ==
[2020-01-14] MEDS ORDERED: NORMAL SALINE 1000 ML 1,000 ML IV ONE ×2 (15:54→17:35)
[2020-01-14] MEDS ORDERED: ONDANSETRON HCL INJ/PF 4 MG/2 ML SDV IV ONE (15:54)
[2020-01-14] MEDS ORDERED: KETOROLAC TROMETHAMINE INJ/PF 30 MG/1 ML SDV IV ONE (15:56)
--- NOTE | 2020-01-14 15:57 | ER Document Report ---
ED Medical Screen (RME) - General Chief Complaint: Flu Symptoms Stated Complaint: FEVER/CHILLS/SWEATS/COUGH/VOMITING Time Seen by Provider: 01/14/20 15:47 Primary Care Provider: MAGGIE HARRISON PA [Primary Care Provider] - Follow up as needed Notes: Patient is a 34-year-old female diabetic who presents emergency department with a chief complaint of body aches. Patient reports since Monday which was 4 days ago she has had a fever as high as 103.6. She reports chills, night sweats, sore throat. Patient reports today beginning to vomit. Patient is unable to keep any fluids down. Patient reports vomiting about 4-5 times. Patient denies sick contacts. Patient did not receive the influenza vaccine this season. Patient denies abdominal pain or urinary symptoms. TRAVEL OUTSIDE OF THE [place] IN LAST 30 DAYS: No - Related Data Allergies/Adverse Reactions: No Known Allergies Allergy (Verified 01/14/20 15:38) Home Medications: humalog 70/30 Past Medical History - Social History Chew tobacco use (# tins/day): No Frequency of alcohol use: None Drug Abuse: None Endocrine Medical History: Reports: Hx Diabetes Mellitus Type 2 Renal/ Medical History: Denies: Hx Peritoneal Dialysis Past Surgical History: Reports: Hx Section - x2, Hx Cholecystectomy - Immunizations Hx Diphtheria, Pertussis, Tetanus Vaccination: Yes Physical Exam - Vital signs Vitals: Temp Pulse Resp BP Pulse Ox 98.5 F 110 H 20 114/86 H 97 01/14/20 15:38 01/14/20 15:38 01/14/20 15:38 01/14/20 15:38 01/14/20 15:38 Course - Re-evaluation Re-evalutation: 01/14/20 15:55 Patient has productive cough noted in triage. Patient does have scattered rhonchi that clears with cough. Rales noted in the lower lobes. No wheezing. Will obtain basic labs, give IV fluids. I have greeted and performed a rapid initial assessment of this patient. A comprehensive ED assessment and evaluation of the patient, analysis of test results and completion of the medical decision making process will be conducted by additional ED providers. - Vital Signs Vital signs: Temp Pulse Resp BP Pulse Ox 98.5 F 110 H 20 114/86 H 97 01/14/20 15:38 01/14/20 15:38 01/14/20 15:38 01/14/20 15:38 01/14/20 15:38 Doctor's Discharge - Discharge Referrals: MAGGIE HARRISON PA [Primary Care Provider] - Follow up as needed
[2020-01-14 16:24] LABS: ABSOLUTE LYMPHOCYTES (AUTO) 1.3 10^3/uL (0.5-4.7); ABSOLUTE MONOCYTES (AUTO) 0.7 10^3/uL (0.1-1.4); ABSOLUTE NEUT (AUTO) 3.5 10^3/uL (1.7-8.2); BASOPHILS % (AUTO) 0.8 % (0-2); EOSINOPHILS % (AUTO) 0.1 % (0-6); HEMOGLOBIN 14.3 g/dL (12.0-15.5); LYMPHOCYTES % (AUTO) 23.5 % (13-45); MEAN CORPUSCULAR HEMOGLOBIN 26.9 pg (27.0-33.4); MEAN CORPUSCULAR HGB CONC 34.1 g/dL (32.0-36.0); MEAN CORPUSCULAR VOLUME 79 fl (80-97); PLATELET COUNT 269 10^3/uL (150-450); RED BLOOD COUNT 5.33 10^6/uL (3.72-5.28); RED CELL DISTRIBUTION WIDTH 14.8 % (11.5-14.0); SEGMENTED NEUTROPHILS % (AUTO) 63.6 % (42-78); TOTAL CELLS COUNTED % (AUTO) 100 %; WHITE BLOOD COUNT 5.5 10^3/uL (4.0-10.5)
[2020-01-14 16:40] LABS: ALBUMIN 4.3 g/dL (3.5-5.0); ALKALINE PHOSPHATASE 105 U/L (38-126); ANION GAP 13 (5-19); ASPARTATE AMINO TRANSFERASE 30 U/L (14-36); BILIRUBIN,DIRECT 0.5 mg/dL (0.0-0.4); BILIRUBIN,TOTAL 0.7 mg/dL (0.2-1.3); BLOOD UREA NITROGEN 10 mg/dL (7-20); CALCIUM 9.1 mg/dL (8.4-10.2); CARBON DIOXIDE 28 mmol/L (22-30); CHLORIDE 91 mmol/L (98-107); GLUCOSE 313 mg/dL (75-110); POTASSIUM 4.5 mmol/L (3.6-5.0); TOTAL PROTEIN 7.9 g/dL (6.3-8.2)
[2020-01-14 16:45] LABS: A TYPE INFLUENZA AG NEGATIVE (NEGATIVE); B INFLUENZA AG NEGATIVE (NEGATIVE)
--- NOTE | 2020-01-14 16:50 | RADIOLOGY REPORT (SQ) ---
EXAM DESCRIPTION: CHEST 2 VIEWS COMPLETED DATE/TIME: 01/14/2020 4:41 pm REASON FOR STUDY: fever, cough, congestion COMPARISON: PA and lateral views of the chest from 12/29/2016. EXAM PARAMETERS: NUMBER OF VIEWS: Two views. TECHNIQUE: PA and lateral views of the chest were obtained.. RADIATION DOSE: NA LIMITATIONS: none FINDINGS: LUNGS AND PLEURA: No consolidation, pleural effusion or pneumothorax. MEDIASTINUM AND HILAR STRUCTURES: No mediastinal or hilar contour abnormality. HEART AND VASCULAR STRUCTURES: The cardiac silhouette and pulmonary vasculature are within normal melo its. BONES: No acute findings. HARDWARE: Cholecystectomy clips. OTHER: No other finding. IMPRESSION: No acute cardiopulmonary process. TECHNICAL DOCUMENTATION: JOB ID: [id number] 2010 [employer]- All Rights Reserved Reading location - IP/workstation name: [email or web address]
[2020-01-14] MEDS ORDERED: BENZONATATE 100 MG CAPSULE PO ONE (17:43)
[2020-01-14] MEDS ORDERED: IPRATROPIUM/ALBUTEROL 0.5-2.5 MG/3 ML AMPUL NEB ONE (17:43)
--- NOTE | 2020-01-14 17:49 | ER Document Report ---
ED General - General Chief Complaint: Flu Symptoms Stated Complaint: FEVER/CHILLS/SWEATS/COUGH/VOMITING Time Seen by Provider: 01/14/20 15:47 Primary Care Provider: MAGGIE HARRISON PA [Primary Care Provider] - Follow up as needed Mode of Arrival: Ambulatory Information source: Patient TRAVEL OUTSIDE OF THE [place] IN LAST 30 DAYS: No - HPI Onset: Other - since last Monday Onset/Duration: Gradual Quality of pain: Achy Severity: Moderate Pain Level: 2 Associated symptoms: Body/muscle aches, Nonproductive cough, Nausea, Sore throat, Other - Vomiting, Sinus Congestion Exacerbated by: Denies Relieved by: Denies Similar symptoms previously: No Recently seen / treated by doctor: No Notes: 34 year old female with a history of insulin dependent DM here for cough, congestion, runny nose, body aches, fevers, chills, sweats, nausea, and vomiting since last Monday. The patient denies known sick contacts or recent travel outside the [place]. The patient has not tried much in the way of over the counter medications other then Tylenol Cold/Flu. The patient was unable to keep much down today so she came to the ER. - Related Data Allergies/Adverse Reactions: No Known Allergies Allergy (Verified 01/14/20 15:38) Home Medications: humalog 70/30 Past Medical History - General Information source: Patient - Social History Smoking Status: Never Smoker Chew tobacco use (# tins/day): No Frequency of alcohol use: None Drug Abuse: None Lives with: Alone Family History: Reviewed & Not Pertinent Patient has suicidal ideation: No Patient has homicidal ideation: No Endocrine Medical History: Reports: Hx Diabetes Mellitus Type 2 Renal/ Medical History: Denies: Hx Peritoneal Dialysis Past Surgical History: Reports: Hx Section - x2, Hx Cholecystectomy - Immunizations Hx Diphtheria, Pertussis, Tetanus Vaccination: Yes Review of Systems - Review of Systems Constitutional: Chills, Diaphoresis, Fever, Malaise, Weakness EENT: Nose congestion, Nose discharge, Throat pain Cardiovascular: No symptoms reported Respiratory: Cough Gastrointestinal: Nausea, Vomiting Genitourinary: No symptoms reported Female Genitourinary: No symptoms reported Musculoskeletal: Other - body aches Skin: No symptoms reported Hematologic/Lymphatic: No symptoms reported Neurological/Psychological: No symptoms reported -: Yes All other systems reviewed and negative Physical Exam - Vital signs Vitals: Temp Pulse Resp BP Pulse Ox 98.5 F 110 H 20 114/86 H 97 01/14/20 15:38 01/14/20 15:38 01/14/20 15:38 01/14/20 15:38 01/14/20 15:38 - Notes Notes: GENERAL: Well-appearing, well-nourished and in no acute distress. HEAD: Atraumatic, normocephalic. EYES: Pupils equal round and reactive to light, extraocular movements intact, sclera anicteric, conjunctiva are normal. ENT: TMs are bilaterally erythematous without bulging, nares patent, oropharynx with mild erythema but without exudates. Moist mucous membranes. NECK: Normal range of motion, supple without lymphadenopathy or JVD. LUNGS: Breath sounds clear to auscultation bilaterally and equal except for very mild end expiratory wheezing. No rhonchi. HEART: Regular rate and rhythm without murmurs, rubs or gallops. ABDOMEN: Soft, nontender, normoactive bowel sounds. No guarding, no rebound. No masses appreciated. EXTREMITIES: Normal range of motion, no pitting or edema. No clubbing or cyanosis. NEUROLOGICAL: Cranial nerves II through XII grossly intact. Normal speech, normal gait. PSYCH: Normal mood, normal affect. SKIN: Warm, Dry, normal turgor, no rashes or lesions noted. Course - Re-evaluation Re-evalutation: 01/14/20 17:51 The patient is here for viral like symptoms with cough, congestion, runny nose, fevers, chills, sweats, diarrhea, abdominal pains. Patient tested negative for the Flu. Patients chest xray was clear. Patient was treated with fluids, Toradol, and Zofran before I evaluated the patient. Patient's nausea and body aches improved after treatment but she still had a cough and some wheezing so Tessalon Perles and a neb were order. Assuming patient's UA and Rapid strep are negative, it seems likely the patient has a viral illness. Plan to discharge patient with script for Tessalon Perles and Zofran and will encourage oral hydration, Tylenol and Motrin, and rest. 01/14/20 18:52 The patient's UA came back very positive for a UTI. Will culture and treat with Cipro. Given she has been having Temps at home to 103F, will treat with 7 days of antibiotics. - Vital Signs Vital signs: Temp Pulse Resp BP Pulse Ox 98.7 F 88 16 119/70 100 01/14/20 17:58 01/14/20 17:58 01/14/20 17:58 01/14/20 17:58 01/14/20 17:58 - Laboratory Result Diagrams: 01/14/20 15:48 01/14/20 15:48 Laboratory results interpreted by me: 01/14/20 01/14/20 01/14/20 15:48 15:48 18:10 RBC 5.33 H MCV 79 L MCH 26.9 L RDW 14.8 H Sodium 131.9 L Chloride 91 L Creatinine 0.42 L Glucose 313 H Direct Bilirubin 0.5 H Urine Protein 30 H Urine Glucose (UA) >=500 H Urine Ketones 80 H Urine Blood SMALL H Ur Leukocyte Esterase MODERATE H - Diagnostic Test Radiology reviewed: Image reviewed, Reports reviewed Discharge - Discharge Clinical Impression: Viral syndrome Nausea & vomiting Qualifiers: Vomiting type: unspecified Vomiting Intractability: unspecified Qualified Code(s): R11.2 - Nausea with vomiting, unspecified UTI (urinary tract infection) Qualifiers: Urinary tract infection type: acute cystitis Hematuria presence: without george turia Qualified Code(s): N30.00 - Acute cystitis without hematuria Condition: Stable Disposition: HOME, SELF-CARE Instructions: Viral Syndrome ([facility]), Urinary Tract Infection ([facility]) Additional Instructions: Take Ciprofloxacin as prescribed for your UTI. Use Zofran for nausea and Tessalon Perles for cough. Drink plenty of fluids in the days to come. Use over the counter Tylenol and Motrin for fevers and body aches. You had blood work, a Flu swab, Rapid Strep showed no acute process. Prescriptions: Benzonatate [Tessalon Perles 100 mg Capsule] 100 mg PO Q8HP PRN #20 capsule PRN Reason: Ciprofloxacin HCl [Cipro 500 mg Tablet] 500 mg PO BID 7 Days #14 tablet Ondansetron [Zofran Odt 4 mg Tablet] 1 tab PO Q8H PRN #15 tab.rapdis PRN Reason: For Nausea/Vomiting Referrals: MAGGIE HARRISON PA [Primary Care Provider] - Follow up as needed
[2020-01-14 17:59] VITALS: BP 119/70
[2020-01-14 18:38] LABS: APPEARANCE,URINE SLIGHTLY-CLOUDY; BILIRUBIN,URINE NEGATIVE (NEGATIVE); COLOR,URINE YELLOW; GLUCOSE, URINE >=500 mg/dL (NEGATIVE); KETONES,URINE 80 mg/dL (NEGATIVE); LEUKOCYTE ESTERASE,URINE MODERATE (NEGATIVE); NITRITE,URINE NEGATIVE (NEGATIVE); PROTEIN,URINE 30 mg/dL (NEGATIVE); URINE SPECIFIC GRAVITY 1.043; UROBILINOGEN,URINE NEGATIVE mg/dL (<2.0)
== END 2020-01-14 18:57 | disposition home or self-care (01) ==
LOC: ER 14:44
DX: B34.9 Viral infection, unspecified (principal); N30.00 Acute cystitis without hematuria; R11.2 Nausea with vomiting, unspecified; R50.9 Fever, unspecified; M79.10 Myalgia, unspecified site; R05 Cough; J02.9 Acute pharyngitis, unspecified; E11.9 Type 2 diabetes mellitus without complications; Z79.84 Long term (current) use of oral hypoglycemic drugs; Z90.49 Acquired absence of other specified parts of digestive tract
CPT/HCPCS: 94640; 99283; 96361; 96374; 96375; 36415; 87070; 87086; 87880; 82962; 85025; 87088; 80053; 81001; 87186; 87804; 71046; J3490; J1885; J2405; J7030; J7620

== ENCOUNTER 2020-06-16 11:28 | Emergency (ER) | payer MEDICAID ==
[2020-06-16 11:45] VITALS: BP 113/66
--- NOTE | 2020-06-16 14:06 | ER Document Report ---
ED Flu Like - General Chief Complaint: Flu Symptoms Stated Complaint: SHORT OF BREATH,NAUSEA,DIZZINESS Time Seen by Provider: 06/16/20 11:58 Primary Care Provider: MAGGIE HARRISON PA [Primary Care Provider] - Follow up in 3-5 days Notes: Patient is a 34-year-old female presents emergency department with a chief complaint shortness of breath, chills, body aches, and generally not feeling well. Patient states that her symptoms started this morning. She was at work and she felt dizzy, but did not pass out. Patient has not felt this before. Patient works at [employer] and [employer]. TRAVEL OUTSIDE OF THE [place] IN LAST 30 DAYS: No - Related Data Allergies/Adverse Reactions: No Known Allergies Allergy (Verified 06/16/20 12:17) Past Medical History - Social History Smoking Status: Never Smoker Family History: Reviewed & Not Pertinent Patient has homicidal ideation: No Endocrine Medical History: Reports: Hx Diabetes Mellitus Type 2 Renal/ Medical History: Denies: Hx Peritoneal Dialysis Past Surgical History: Reports: Hx Section - x2, Hx Cholecystectomy - Immunizations Hx Diphtheria, Pertussis, Tetanus Vaccination: Yes Review of Systems - Review of Systems Notes: REVIEW OF SYSTEMS: CONSTITUTIONAL : Denies recent illness. Denies recent unintentional weight loss. See HPI. EENT: Denies eye, ear, throat, or mouth pain, discharge, or symptoms. Denies nasal or sinus congestion. CARDIOVASCULAR: Denies chest pain. RESPIRATORY: See HPI. GASTROINTESTINAL: See HPI. GENITOURINARY: Denies difficulty urinating, burning, blood in urine, urgency or frequency. MUSCULOSKELETAL: Denies neck and back pain. Denies joint pain or swelling. SKIN: Denies rash, itchiness, or lesions HEMATOLOGIC : Denies easy bruising or bleeding. LYMPHATIC: Denies swollen, painful, enlarged glands. NEUROLOGICAL: Denies no numbness or tingling denies weakness. Denies headache. Denies altered mental status. Denies alteration in speech. PSYCHIATRIC: Denies stress, anxiety, alteration in sleep patterns, or depression. All other systems reviewed and negative. Physical Exam - Vital signs Vitals: Temp Pulse Resp BP Pulse Ox 98.0 F 79 16 113/66 99 06/16/20 11:42 06/16/20 11:42 06/16/20 11:42 06/16/20 11:42 06/16/20 11:42 - Notes Notes: PHYSICAL EXAMINATION: GENERAL: Appears well, healthy, well-nourished, no acute distress. HEAD: Normocephalic, atraumatic. EYES: PERRL, conjunctiva normal, all extraocular movements intact, sclera nonicteric ENT: Moist mucous membranes. NECK: Supple, no noticeable swelling, redness, rash. Normal range of motion. LUNGS: Equal breath sounds bilaterally and clear to auscultation. No wheezes rales or rhonchi. CARDIOVASCULAR: S1-S2, regular rate, regular rhythm. Radial pulses 2+, normal. ABDOMEN: Normoactive bowel sounds. Soft, nontender, no guarding, no rebound tenderness, and no masses palpated. EXTREMITIES: Normal strength and range of motion, no pitting or edema. No cyanosis. NEUROLOGICAL: Moves all extremities upon command. Strength 5/5 in all extremities. PSYCH: Normal mood, normal affect. SKIN: Warm, dry. No rash, lesions, ulcerations noted. Normal skin turgor. Course - Re-evaluation Re-evalutation: 06/16/20 15:41 Patient has a slight leukocytosis of 11,400. D-dimer is negative. Sodium is 136. Glucose is 218. Patient has trace ketones and nitrates in her urine. Urine has been sent for culture. Rapid strep test is negative. Throat culture has been sent. Patient states that she feels fine and no interventions were done. I have a low suspicion for any life-threatening etiology. Exam is benign. Patient is tolerating oral fluids with no intervention. I offered for the patient to be tested for COVID-19 and she stated that she did not want to be tested. Denies any contact with anybody who tested positive for COVID-19. Patient will follow-up with her primary care provider. Follow-up precautions were given. Verbal discharge instructions were given to the patient. They verbalized understanding. They are stable for discharge. - Vital Signs Vital signs: Temp Pulse Resp BP Pulse Ox 98.0 F 79 16 113/66 99 06/16/20 11:42 06/16/20 11:42 06/16/20 11:42 06/16/20 11:42 06/16/20 11:42 - Laboratory Result Diagrams: 06/16/20 13:50 06/16/20 13:50 Laboratory results interpreted by me: 07/21/20 07/21/20 07/21/20 13:50 13:50 13:50 WBC 11.4 H RDW 14.1 H Sodium 136.2 L Creatinine 0.38 L Glucose 218 H Urine Glucose (UA) >=500 H Urine Ketones TRACE H Urine Blood SMALL H Urine Nitrite (Reflex) POSITIVE H - EKG Interpretation by Me Additional EKG results interpreted by me: 06/16/20 15:42 Sinus rhythm. Rate 66. ND 160; QRS 84; QT 444; QTc 466. No ST elevations or depressions noted. Discharge - Discharge Clinical Impression: Nausea, Shortness of breath, Dehydration Condition: Stable Disposition: HOME, SELF-CARE Additional Instructions: You were seen today in the emergency department nausea and shortness of breath. Your work-up was normal other than slight dehydration. Take nausea medication as prescribed. Follow-up with your primary care provider in regards to this visit. Prescriptions: Ondansetron [Zofran Odt 4 mg Tablet] 1 - 2 tab PO Q4H PRN #15 tab.rapdis PRN Reason: For Nausea/Vomiting Forms: Return to Work Referrals: MAGGIE HARRISON PA [Primary Care Provider] - Follow up in 3-5 days
[2020-06-16 14:08] LABS: ABSOLUTE BASOPHILS # (AUTO) 0.1 10^3/uL (0.0-0.2); ABSOLUTE MONOCYTES (AUTO) 0.7 10^3/uL (0.1-1.4); ABSOLUTE NEUT (AUTO) 7.6 10^3/uL (1.7-8.2); BASOPHILS % (AUTO) 0.6 % (0-2); EOSINOPHILS % (AUTO) 0.4 % (0-6); HEMOGLOBIN 12.3 g/dL (12.0-15.5); LYMPHOCYTES % (AUTO) 26.3 % (13-45); MEAN CORPUSCULAR HEMOGLOBIN 27.7 pg (27.0-33.4); MEAN CORPUSCULAR HGB CONC 34.3 g/dL (32.0-36.0); MEAN CORPUSCULAR VOLUME 81 fl (80-97); MONOCYTES % (AUTO) 6.2 % (3-13); PLATELET COUNT 356 10^3/uL (150-450); RED BLOOD COUNT 4.46 10^6/uL (3.72-5.28); RED CELL DISTRIBUTION WIDTH 14.1 % (11.5-14.0); TOTAL CELLS COUNTED % (AUTO) 100 %; WHITE BLOOD COUNT 11.4 10^3/uL (4.0-10.5)
[2020-06-16 14:10] LABS: SEGMENTED NEUTROPHILS % (AUTO) 66.5 % (42-78)
[2020-06-16 14:28] LABS: APPEARANCE,URINE CLEAR; BILIRUBIN,URINE NEGATIVE (NEGATIVE); COLOR,URINE YELLOW; GLUCOSE, URINE >=500 mg/dL (NEGATIVE); KETONES,URINE TRACE mg/dL (NEGATIVE); PROTEIN,URINE NEGATIVE (NEGATIVE); URINE SPECIFIC GRAVITY 1.032; UROBILINOGEN,URINE NEGATIVE mg/dL (<2.0)
[2020-06-16 14:31] LABS: ALBUMIN 4.3 g/dL (3.5-5.0); ALKALINE PHOSPHATASE 89 U/L (38-126); ANION GAP 7 (5-19); ASPARTATE AMINO TRANSFERASE 23 U/L (14-36); BILIRUBIN,TOTAL 0.4 mg/dL (0.2-1.3); BLOOD UREA NITROGEN 9 mg/dL (7-20); CALCIUM 9.5 mg/dL (8.4-10.2); CARBON DIOXIDE 30 mmol/L (22-30); CHLORIDE 99 mmol/L (98-107); GLUCOSE 218 mg/dL (75-110); POTASSIUM 4.4 mmol/L (3.6-5.0); TOTAL PROTEIN 7.4 g/dL (6.3-8.2)
--- NOTE | 2020-06-16 14:45 | RADIOLOGY REPORT (SQ) ---
EXAM DESCRIPTION: CHEST SINGLE VIEW IMAGES COMPLETED DATE/TIME: 06/16/2020 2:35 pm REASON FOR STUDY: shortness of breath COMPARISON: Chest films 12/29/2016, 01/14/2020 EXAM PARAMETERS: NUMBER OF VIEWS: One view. TECHNIQUE: Single frontal radiographic view of the chest acquired. RADIATION DOSE: NA LIMITATIONS: None. FINDINGS: LUNGS AND PLEURA: No opacities, masses or pneumothorax. No pleural effusion. MEDIASTINUM AND HILAR STRUCTURES: No masses. Contour normal. HEART AND VASCULAR STRUCTURES: Heart normal in size. Normal vasculature. BONES: No acute findings. HARDWARE: None in the chest. OTHER: No other significant finding. IMPRESSION: NO ACUTE RADIOGRAPHIC FINDING IN THE CHEST. TECHNICAL DOCUMENTATION: JOB ID: [id number] 2010 [employer] All Rights Reserved Reading location - IP/workstation name: [email or web address]
--- NOTE | 2020-06-17 09:17 | EKG REPORT ---
SEVERITY:- NORMAL ECG - SINUS RHYTHM : Confirmed by: Carolyn Scott 17-Jun-2020 09:17:07
== END 2020-06-16 16:48 | disposition home or self-care (01) ==
LOC: ER 11:28
DX: R06.02 Shortness of breath (principal); E86.0 Dehydration; R11.0 Nausea; R68.83 Chills (without fever); R52 Pain, unspecified; R42 Dizziness and giddiness; D72.829 Elevated white blood cell count, unspecified; E11.9 Type 2 diabetes mellitus without complications
CPT/HCPCS: 36415; 71045; 80053; 81001; 85025; 85379; 87070; 87086; 87088; 87186; 87880; 93005; 93010; 99285

== ENCOUNTER 2020-08-19 13:16 | Emergency (ER) | payer MEDICAID ==
--- NOTE | 2020-08-19 15:44 | RADIOLOGY REPORT (SQ) ---
EXAM DESCRIPTION: WRIST RIGHT 3 VIEWS IMAGES COMPLETED DATE/TIME: 08/19/2020 3:30 pm REASON FOR STUDY: fall on outstretch hand COMPARISON: None. NUMBER OF VIEWS: Three views. TECHNIQUE: AP, lateral, and oblique radiographic images acquired of the right wrist. LIMITATIONS: None. FINDINGS: MINERALIZATION: Normal. BONES: No acute fracture or dislocation. No worrisome bone lesions. Normal alignment. SOFT TISSUES: No soft tissue swelling. No foreign body. OTHER: No other significant finding. IMPRESSION: NEGATIVE STUDY OF THE RIGHT WRIST. NO RADIOGRAPHIC EVIDENCE OF ACUTE INJURY. TECHNICAL DOCUMENTATION: JOB ID: [id number] 2010 [employer]- All Rights Reserved Reading location - IP/workstation name: [email or web address]
--- NOTE | 2020-08-19 15:44 | RADIOLOGY REPORT (SQ) ---
EXAM DESCRIPTION: HAND RIGHT 3 VIEWS IMAGES COMPLETED DATE/TIME: 08/19/2020 3:30 pm REASON FOR STUDY: fall on outstretch hand COMPARISON: None. EXAM PARAMETERS: NUMBER OF VIEWS: Three views. TECHNIQUE: AP, lateral and oblique radiographic images acquired of the right hand. LIMITATIONS: None. FINDINGS: MINERALIZATION: Normal. BONES: No acute fracture or dislocation. No worrisome bone lesions. JOINTS: No effusions. SOFT TISSUES: No soft tissue swelling. No foreign body. OTHER: No other significant finding. IMPRESSION: NEGATIVE STUDY OF THE RIGHT HAND. NO RADIOGRAPHIC EVIDENCE OF ACUTE INJURY. TECHNICAL DOCUMENTATION: JOB ID: [id number] 2010 [employer]- All Rights Reserved Reading location - IP/workstation name: [email or web address]
--- NOTE | 2020-08-19 15:45 | RADIOLOGY REPORT (SQ) ---
EXAM DESCRIPTION: FOREARM RIGHT IMAGES COMPLETED DATE/TIME: 08/19/2020 3:30 pm REASON FOR STUDY: fall on outstretch hand COMPARISON: None. NUMBER OF VIEWS: Two views. TECHNIQUE: Two radiographic images acquired of the right forearm, including elbow and wrist in at le ast one projection. LIMITATIONS: None. FINDINGS: MINERALIZATION: Normal. BONES: No acute fracture. No worrisome bone lesions. SOFT TISSUES: No obvious swelling or foreign body. OTHER: No other significant finding. IMPRESSION: NEGATIVE STUDY OF THE RIGHT FOREARM. NO RADIOGRAPHIC EVIDENCE OF ACUTE INJURY. TECHNICAL DOCUMENTATION: JOB ID: [id number] 2010 [employer]- All Rights Reserved Reading location - IP/workstation name: [email or web address]
--- NOTE | 2020-08-19 16:25 | ER Document Report ---
HPI - HPI Pain Level: 4 Notes: 34-year-old female presenting today with right hand pain for 2 days. She was walking in her yard and she fell on an outstretched hand. She felt pain immediately after increasing. 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 Has taken ibuprofen with minimal relief in symptoms. Denies any additional symptoms at this time. - REPRODUCTIVE Reproductive: DENIES: : - MUSCULOSKELETAL Musculoskeletal: REPORTS: Extremity pain - right hand Past Medical History - Social History Smoking Status: Never Smoker Chew tobacco use (# tins/day): No Frequency of alcohol use: None Drug Abuse: None Family History: Reviewed & Not Pertinent Patient has homicidal ideation: No Endocrine Medical History: Reports: Hx Diabetes Mellitus Type 2 Renal/ Medical History: Denies: Hx Peritoneal Dialysis Psychiatric Medical History: Reports: Hx Depression Past Surgical History: Reports: Hx Section - x2, Hx Cholecystectomy - Immunizations Hx Diphtheria, Pertussis, Tetanus Vaccination: Yes Vertical Provider Document - INFECTION CONTROL TRAVEL OUTSIDE OF THE [place] IN LAST 30 DAYS: No - HEENT HEENT: Atraumatic - NECK Neck: Normal Inspection - RESPIRATORY Respiratory: No Respiratory Distress - MUSCULOSKELETAL/EXTREMETIES Notes: Right hand is tender to palpation along the third and fourth MCP. Associated tenderness along MCP joints. Also notes tenderness along the distal forearm. Capillary refill is less than 2 seconds. Good bilateral radial pulses. Good sensation to light touch. Strength is 5 out of 5. Full flexion and extension of hand. - DERM Integumentary: Warm, Dry Notes: Contusion and bruising to the fifth finger. Course - Re-evaluation Re-evalutation: 08/19/20 14:20 Imaging ordered. Pending results. 08/19/20 22:00 X-ray showed no fractures or dislocations of the wrist, hand or forearm. Has a contusion of her hand. I also suspect that she has a wrist splint right. I discussed these findings with the patient. I will place the patient in a splint and recommend that she follows up with her primary care provider soon as possible. She can use Tylenol and ibuprofen for pain relief. I discussed return precautions to the emergency department to include worsening pain, redness, swelling or additional concerning symptoms. Patient verbalizes understanding of instructions and plan. All questions answered. - Vital Signs Vital signs: Temp Pulse Resp BP Pulse Ox 98.1 F 77 16 123/77 99 08/19/20 14:01 08/19/20 13:34 08/19/20 13:34 08/19/20 13:34 08/19/20 13:34 Procedures - Immobilization Right Wrist Pre-Proc Neuro Vasc Exam: Normal Immobilizer type: Cock-up Post-Proc Neuro Vasc Exam: Normal Discharge - Discharge Clinical Impression: Contusion of hand, right Qualifiers: Encounter type: initial encounter Qualified Code(s): S60.221A - Contusion of right hand, initial encounter Condition: Stable Disposition: HOME, SELF-CARE Additional Instructions: Your imaging shows no fractures. I suspect you have a contusion of your hand. You will be given a splint to use. Please use Tylenol and ibuprofen to help alleviate your pain. Please follow-up with your primary care provider soon as possible. If your symptoms worsen or you develop new symptoms or they do not improve you may return to the emergency department for further evaluation and treatment. Referrals: MAGGIE HARRISON PA [Primary Care Provider] - Follow up as needed
[2020-08-19 16:49] VITALS: BP 113/99
== END 2020-08-19 16:51 | disposition home or self-care (01) ==
LOC: ER 13:16
DX: S60.221A Contusion of right hand, initial encounter (principal); S60.05 Contusion of little finger without damage to nail; M79.641 Pain in right hand; W19.XXXA Unspecified fall, initial encounter; E11.9 Type 2 diabetes mellitus without complications
CPT/HCPCS: 99284